=== PATIENT | female | born 1980 | race Hispanic/Latino ===

== ENCOUNTER 2017-06-23 11:06 | Day surgery (SDC) | payer OTHER ==
[2017-06-23] MEDS ORDERED: [UNRECOGNIZED DRUG - OTHER] IVPB SCH (11:30)
[2017-06-23] MEDS ORDERED: DOXORUBICIN HCL SLOW IVP SCH ×2 (11:30→11:45)
[2017-06-23] MEDS ORDERED: Fosaprepitant Dimeglumine 150 MG, Admixture Fee 1 EACH in Sodium Chloride 0.9% 250 ML 1... IVPB SCH (11:30)
[2017-06-23] MEDS ORDERED: CYCLOPHOSPHAMIDE IVPB SCH (11:30)
[2017-06-23] MEDS ORDERED: Pegfilgrastim 6 MG/0.6 ML Delivery Kit SQ SCH (11:30)
[2017-06-23] MEDS ORDERED: ADMIXTURE FEE SLOW IVP SCH (11:30)
[2017-06-23] MEDS ORDERED: Dexamethasone 10 MG in Sodium Chloride 0.9% 50 ML IVPB SCH (11:30)
[2017-06-23] MEDS ORDERED: ADMIXTURE FEE IVPB SCH (11:30)
[2017-06-23] MEDS ORDERED: Palonosetron HCl 0.25 MG, Admixture Fee 1 EACH in Sodium Chloride 0.9% 50 ML IVPB SCH (11:30)
[2017-06-23] MEDS ORDERED: SODIUM CHLORIDE 0.9% SLOW IVP SCH (11:45)
[2017-06-23 12:46] VITALS: BP 122/79; TEMP 98
== END 2017-06-23 16:06 | disposition home or self-care (01) ==
LOC: ONC/OP 11:06
PROVIDERS: ATTEND Internal Medicine Medical Oncology
DX: Z51.11 Encounter for antineoplastic chemotherapy (principal)
CPT/HCPCS: 93306; 96367; 96372; 96377; 96413; 96417; 99211; G0463; J1100; J1453; J1642; J2469; J2505; J7050; J9000; J9070

== ENCOUNTER 2017-07-07 10:29 | Day surgery (SDC) | payer OTHER ==
[2017-07-07] MEDS ORDERED: Sodium Chloride 0.9% 20 ML ONE (10:37)
[2017-07-07 10:41] VITALS: BP 126/72; TEMP 98.5
[2017-07-07] MEDS ORDERED: [UNRECOGNIZED DRUG - OTHER] IVPB SCH (10:45)
[2017-07-07] MEDS ORDERED: Palonosetron HCl 0.25 MG, Admixture Fee 1 EACH in Sodium Chloride 0.9% 50 ML IVPB SCH (10:45)
[2017-07-07] MEDS ORDERED: ADMIXTURE FEE IVPB SCH ×2 (10:45→11:00)
[2017-07-07] MEDS ORDERED: CYCLOPHOSPHAMIDE IVPB SCH (10:45)
[2017-07-07] MEDS ORDERED: Dexamethasone 10 MG, Admixture Fee 1 EACH in Sodium Chloride 0.9% 50 ML IVPB SCH (10:45)
[2017-07-07] MEDS ORDERED: SODIUM CHLORIDE IVPB SCH (11:00)
[2017-07-07] MEDS ORDERED: Pegfilgrastim 6 MG/0.6 ML Delivery Kit SQ SCH (11:00)
[2017-07-07] MEDS ORDERED: DOXORUBICIN IVPB SCH (11:00)
== END 2017-07-07 14:01 | disposition home or self-care (01) ==
LOC: ONC/OP 10:29
PROVIDERS: ATTEND Internal Medicine Medical Oncology
DX: Z51.11 Encounter for antineoplastic chemotherapy (principal); C50.411 Malignant neoplasm of upper-outer quadrant of right female breast; C77.9 Secondary and unspecified malignant neoplasm of lymph node, unspecified; E11.9 Type 2 diabetes mellitus without complications; F32.9 Major depressive disorder, single episode, unspecified; Z17.1 Estrogen receptor negative status [ER-]; Z79.84 Long term (current) use of oral hypoglycemic drugs; Z79.899 Other long term (current) drug therapy; Z98.51 Tubal ligation status; Z90.49 Acquired absence of other specified parts of digestive tract; Z98.890 Other specified postprocedural states; Z87.19 Personal history of other diseases of the digestive system
CPT/HCPCS: 36415; 80053; 82248; 83615; 84100; 84550; 96367; 96372; 96413; 96417; A4216; J1100; J1642; J2469; J7050; J9000; J9070

== ENCOUNTER 2017-08-04 09:18 | Day surgery (SDC) | payer OTHER ==
[2017-08-04] MEDS ORDERED: [UNRECOGNIZED DRUG - OTHER] IVPB SCH (09:45)
[2017-08-04] MEDS ORDERED: Pegfilgrastim 6 MG/0.6 ML Delivery Kit SQ SCH (09:45)
[2017-08-04] MEDS ORDERED: ADMIXTURE FEE IVPB SCH ×2 (09:45)
[2017-08-04] MEDS ORDERED: Dexamethasone 10 MG, Admixture Fee 1 EACH in Sodium Chloride 0.9% 50 ML IVPB SCH (09:45)
[2017-08-04] MEDS ORDERED: CYCLOPHOSPHAMIDE IVPB SCH (09:45)
[2017-08-04] MEDS ORDERED: DOXORUBICIN IVPB SCH (09:45)
[2017-08-04] MEDS ORDERED: SODIUM CHLORIDE IVPB SCH (09:45)
[2017-08-04] MEDS ORDERED: Palonosetron HCl 0.25 MG, Admixture Fee 1 EACH in Sodium Chloride 0.9% 50 ML IVPB SCH (09:45)
[2017-08-04 13:00] VITALS: BP 148/72; TEMP 98.8
== END 2017-08-04 13:50 | disposition home or self-care (01) ==
LOC: ONC/OP 09:18
PROVIDERS: ATTEND Internal Medicine Medical Oncology
DX: Z51.11 Encounter for antineoplastic chemotherapy (principal); C50.411 Malignant neoplasm of upper-outer quadrant of right female breast; E11.9 Type 2 diabetes mellitus without complications; F41.9 Anxiety disorder, unspecified; F32.9 Major depressive disorder, single episode, unspecified; Z79.84 Long term (current) use of oral hypoglycemic drugs; Z79.899 Other long term (current) drug therapy; Z98.51 Tubal ligation status; Z90.49 Acquired absence of other specified parts of digestive tract; Z98.890 Other specified postprocedural states
CPT/HCPCS: 96367; 96372; 96377; 96413; 96417; J1100; J2469; J2505; J7050; J9000; J9070

== ENCOUNTER 2017-08-18 09:36 | Day surgery (SDC) | payer OTHER ==
[2017-08-18] MEDS ORDERED: PACLitaxel 160 MG in Sodium Chloride 0.9% 250 ML 250 ML IVPB SCH (10:00)
[2017-08-18] MEDS ORDERED: Dexamethasone 10 MG in Sodium Chloride 0.9% 50 ML IVPB SCH (10:00)
[2017-08-18 10:14] VITALS: BP 117/64; TEMP 98.1
[2017-08-18] MEDS ORDERED: Sodium Chloride 0.9% 20 ML ONE (12:05)
== END 2017-08-18 12:17 | disposition home or self-care (01) ==
LOC: ONC/OP 09:36
PROVIDERS: ATTEND Internal Medicine Medical Oncology
DX: Z51.11 Encounter for antineoplastic chemotherapy (principal); C50.411 Malignant neoplasm of upper-outer quadrant of right female breast; E11.9 Type 2 diabetes mellitus without complications; F41.9 Anxiety disorder, unspecified; F32.9 Major depressive disorder, single episode, unspecified; Z79.84 Long term (current) use of oral hypoglycemic drugs; Z79.899 Other long term (current) drug therapy; Z90.49 Acquired absence of other specified parts of digestive tract; Z98.51 Tubal ligation status
CPT/HCPCS: 36415; 80053; 82248; 83615; 84100; 84550; 96367; 96413; A4216; J1100; J1642; J7050; J9267

== ENCOUNTER 2017-08-25 09:07 | Day surgery (SDC) | payer OTHER ==
[2017-08-25] MEDS ORDERED: Sodium Chloride 0.9% 20 ML ONE (09:25)
[2017-08-25] MEDS ORDERED: SODIUM CHLORIDE IVPB SCH (09:45)
[2017-08-25] MEDS ORDERED: PACLITAXEL IVPB SCH (09:45)
[2017-08-25] MEDS ORDERED: Dexamethasone 10 MG, Admixture Fee 1 EACH in Sodium Chloride 0.9% 50 ML IVPB SCH (09:45)
[2017-08-25] MEDS ORDERED: ADMIXTURE FEE IVPB SCH (09:45)
[2017-08-25 09:59] VITALS: BP 116/69; TEMP 97.5
== END 2017-08-25 16:49 | disposition home or self-care (01) ==
LOC: ONC/OP 09:07
PROVIDERS: ATTEND Internal Medicine Medical Oncology
DX: Z51.11 Encounter for antineoplastic chemotherapy (principal); C50.411 Malignant neoplasm of upper-outer quadrant of right female breast; E11.9 Type 2 diabetes mellitus without complications; F41.9 Anxiety disorder, unspecified; F32.9 Major depressive disorder, single episode, unspecified; Z79.84 Long term (current) use of oral hypoglycemic drugs; Z79.899 Other long term (current) drug therapy; Z90.49 Acquired absence of other specified parts of digestive tract; Z98.51 Tubal ligation status; Z98.890 Other specified postprocedural states
CPT/HCPCS: 96367; 96413; A4216; J1100; J1642; J7050; J9267

== ENCOUNTER 2017-09-01 09:30 | Day surgery (SDC) | payer OTHER ==
[2017-09-01] MEDS ORDERED: Sodium Chloride 0.9% 20 ML ONE ×2 (09:43→11:36)
[2017-09-01] MEDS ORDERED: SODIUM CHLORIDE IVPB SCH (10:00)
[2017-09-01] MEDS ORDERED: PACLITAXEL IVPB SCH (10:00)
[2017-09-01] MEDS ORDERED: Dexamethasone 4 mg/ml Vial SLOW IVP SCH (10:00)
[2017-09-01] MEDS ORDERED: ADMIXTURE FEE IVPB SCH (10:00)
[2017-09-01 10:41] VITALS: BP 103/73; TEMP 99.3
== END 2017-09-01 12:12 | disposition home or self-care (01) ==
LOC: ONC/OP 09:30
PROVIDERS: ATTEND Internal Medicine Medical Oncology
DX: Z51.11 Encounter for antineoplastic chemotherapy (principal); C50.411 Malignant neoplasm of upper-outer quadrant of right female breast; E11.9 Type 2 diabetes mellitus without complications; F32.9 Major depressive disorder, single episode, unspecified; F41.9 Anxiety disorder, unspecified; Z79.899 Other long term (current) drug therapy; Z90.49 Acquired absence of other specified parts of digestive tract; Z98.890 Other specified postprocedural states
CPT/HCPCS: 96375; 96413; A4216; J1100; J1642; J7050; J9267

== ENCOUNTER 2017-09-08 10:13 | Day surgery (SDC) | payer OTHER ==
[2017-09-08] MEDS ORDERED: Sodium Chloride 0.9% 20 ML ONE (10:32)
[2017-09-08] MEDS ORDERED: Dexamethasone 4 mg/ml Vial SLOW IVP SCH (11:15)
[2017-09-08] MEDS ORDERED: PACLitaxel 160 MG in Sodium Chloride 0.9% 250 ML 250 ML IVPB SCH (11:15)
[2017-09-08 13:51] VITALS: BP 123/71; TEMP 98.2
== END 2017-09-08 13:51 | disposition home or self-care (01) ==
LOC: ONC/OP 10:13
PROVIDERS: ATTEND Internal Medicine Medical Oncology
DX: Z51.11 Encounter for antineoplastic chemotherapy (principal); C50.411 Malignant neoplasm of upper-outer quadrant of right female breast; E11.9 Type 2 diabetes mellitus without complications; F32.9 Major depressive disorder, single episode, unspecified; F41.9 Anxiety disorder, unspecified; Z79.4 Long term (current) use of insulin; Z90.49 Acquired absence of other specified parts of digestive tract; Z98.51 Tubal ligation status; Z98.890 Other specified postprocedural states
CPT/HCPCS: 96375; 96413; A4216; J1100; J1642; J7050; J9267

== ENCOUNTER 2017-09-15 09:59 | Day surgery (SDC) | payer OTHER ==
[2017-09-15] MEDS ORDERED: Dexamethasone 4 mg/ml Vial SLOW IVP SCH (10:15)
[2017-09-15] MEDS ORDERED: PACLitaxel 160 MG in Sodium Chloride 0.9% 250 ML 250 ML IVPB SCH (10:15)
[2017-09-15] MEDS ORDERED: Sodium Chloride 0.9% 20 ML ONE (11:58)
== END 2017-09-15 14:30 | disposition home or self-care (01) ==
LOC: ONC/OP 09:59
PROVIDERS: ATTEND Internal Medicine Medical Oncology
DX: Z51.11 Encounter for antineoplastic chemotherapy (principal); C50.411 Malignant neoplasm of upper-outer quadrant of right female breast; E11.9 Type 2 diabetes mellitus without complications; F32.9 Major depressive disorder, single episode, unspecified; F41.9 Anxiety disorder, unspecified; Z79.84 Long term (current) use of oral hypoglycemic drugs; Z79.899 Other long term (current) drug therapy; Z90.49 Acquired absence of other specified parts of digestive tract; Z98.51 Tubal ligation status; Z98.890 Other specified postprocedural states
CPT/HCPCS: 80053; 82248; 83615; 84100; 84550; 96375; 96413; A4216; J1100; J1642; J7050; J9267

== ENCOUNTER 2017-09-22 09:40 | Day surgery (SDC) | payer OTHER ==
[2017-09-22] MEDS ORDERED: Sodium Chloride 0.9% 20 ML ONE (09:51)
[2017-09-22] MEDS ORDERED: Dexamethasone 4 MG in Sodium Chloride 0.9% 50 ML IVPB SCH (10:15)
[2017-09-22] MEDS ORDERED: PACLitaxel 160 MG in Sodium Chloride 0.9% 250 ML 250 ML IVPB SCH (10:15)
[2017-09-22 10:18] VITALS: BP 121/69; TEMP 98.4
[2017-09-22] MEDS ORDERED: Dexamethasone 4 mg/ml Vial SLOW IVP SCH (10:30)
== END 2017-09-22 11:53 | disposition home or self-care (01) ==
LOC: ONC/OP 09:40
PROVIDERS: ATTEND Internal Medicine Medical Oncology
DX: Z51.11 Encounter for antineoplastic chemotherapy (principal); C50.411 Malignant neoplasm of upper-outer quadrant of right female breast; E11.9 Type 2 diabetes mellitus without complications; F41.8 Other specified anxiety disorders; Z79.4 Long term (current) use of insulin; Z79.899 Other long term (current) drug therapy; Z98.51 Tubal ligation status; Z90.49 Acquired absence of other specified parts of digestive tract; Z98.890 Other specified postprocedural states
CPT/HCPCS: 96375; 96413; A4216; J1100; J1642; J7050; J9267

== ENCOUNTER 2017-09-29 10:04 | Day surgery (SDC) | payer OTHER ==
[2017-09-29 10:15] VITALS: BP 117/59; TEMP 98.1
[2017-09-29] MEDS ORDERED: Dexamethasone 4 MG in Sodium Chloride 0.9% 50 ML SLOW IVP SCH (10:15)
[2017-09-29] MEDS ORDERED: PACLitaxel 160 MG in Sodium Chloride 0.9% 250 ML 250 ML IVPB SCH (10:15)
[2017-09-29] MEDS ORDERED: Dexamethasone 4 mg/ml Vial SLOW IVP SCH (10:30)
[2017-09-29] MEDS ORDERED: Sodium Chloride 0.9% 20 ML ONE (10:33)
== END 2017-09-29 14:26 | disposition home or self-care (01) ==
LOC: ONC/OP 10:04
PROVIDERS: ATTEND Internal Medicine Medical Oncology
DX: Z51.11 Encounter for antineoplastic chemotherapy (principal); C50.411 Malignant neoplasm of upper-outer quadrant of right female breast; E11.9 Type 2 diabetes mellitus without complications; F41.9 Anxiety disorder, unspecified; F32.9 Major depressive disorder, single episode, unspecified; Z79.4 Long term (current) use of insulin; Z79.899 Other long term (current) drug therapy; Z98.51 Tubal ligation status; Z90.49 Acquired absence of other specified parts of digestive tract; Z98.891 History of uterine scar from previous surgery; Z98.890 Other specified postprocedural states
CPT/HCPCS: 96413; A4216; J1100; J1642; J7050; J9267

== ENCOUNTER 2017-10-06 10:06 | Day surgery (SDC) | payer OTHER ==
[2017-10-06] MEDS ORDERED: Sodium Chloride 0.9% 20 ML ONE (10:21)
[2017-10-06] MEDS ORDERED: Dexamethasone 10 MG, Admixture Fee 1 EACH in Sodium Chloride 0.9% 50 ML IVPB SCH (10:30)
[2017-10-06] MEDS ORDERED: SODIUM CHLORIDE IVPB SCH (10:30)
[2017-10-06] MEDS ORDERED: ADMIXTURE FEE IVPB SCH (10:30)
[2017-10-06] MEDS ORDERED: PACLITAXEL IVPB SCH (10:30)
[2017-10-06] MEDS ORDERED: Dexamethasone 4 mg/ml Vial SLOW IVP SCH (11:00)
[2017-10-06 11:31] VITALS: BP 130/74; TEMP 98.3
== END 2017-10-06 13:19 | disposition home or self-care (01) ==
LOC: ONC/OP 10:06
PROVIDERS: ATTEND Internal Medicine Medical Oncology
DX: Z51.11 Encounter for antineoplastic chemotherapy (principal); C50.411 Malignant neoplasm of upper-outer quadrant of right female breast; F41.9 Anxiety disorder, unspecified; F32.9 Major depressive disorder, single episode, unspecified; E11.9 Type 2 diabetes mellitus without complications; Z90.49 Acquired absence of other specified parts of digestive tract; Z98.891 History of uterine scar from previous surgery; Z98.890 Other specified postprocedural states; Z98.51 Tubal ligation status
CPT/HCPCS: 96375; 96413; A4216; J1100; J1642; J7050; J9267

== ENCOUNTER 2017-10-13 10:36 | Day surgery (SDC) | payer OTHER ==
[2017-10-13] MEDS ORDERED: Sodium Chloride 0.9% 20 ML ONE (10:45)
[2017-10-13] MEDS ORDERED: PACLITAXEL IVPB SCH (10:45)
[2017-10-13] MEDS ORDERED: SODIUM CHLORIDE IVPB SCH (10:45)
[2017-10-13] MEDS ORDERED: Dexamethasone 4 MG, Admixture Fee 1 EACH in Sodium Chloride 0.9% 50 ML IVPB SCH (10:45)
[2017-10-13] MEDS ORDERED: ADMIXTURE FEE IVPB SCH (10:45)
[2017-10-13] MEDS ORDERED: Dexamethasone 4 mg/ml Vial SLOW IVP SCH (11:00)
== END 2017-10-13 12:44 | disposition home or self-care (01) ==
LOC: ONC/OP 10:36
PROVIDERS: ATTEND Internal Medicine Medical Oncology
DX: Z51.11 Encounter for antineoplastic chemotherapy (principal); C50.411 Malignant neoplasm of upper-outer quadrant of right female breast; E11.9 Type 2 diabetes mellitus without complications; F32.9 Major depressive disorder, single episode, unspecified; F41.9 Anxiety disorder, unspecified; Z79.4 Long term (current) use of insulin; Z79.899 Other long term (current) drug therapy; Z90.49 Acquired absence of other specified parts of digestive tract; Z98.1 Arthrodesis status; Z98.891 History of uterine scar from previous surgery; Z98.890 Other specified postprocedural states
CPT/HCPCS: 36415; 80053; 82248; 83615; 84100; 84550; 96375; 96413; A4216; J1100; J1642; J7050; J9267

== ENCOUNTER 2017-10-20 09:46 | Day surgery (SDC) | payer OTHER ==
[2017-10-20] MEDS ORDERED: Dexamethasone 4 mg/ml Vial SLOW IVP SCH (10:00)
[2017-10-20] MEDS ORDERED: PACLitaxel 160 MG in Sodium Chloride 0.9% 250 ML 250 ML IVPB SCH (10:00)
[2017-10-20 10:10] VITALS: BP 116/68; TEMP 97.7
[2017-10-20] MEDS ORDERED: Sodium Chloride 0.9% 30 ML ONE (10:26)
== END 2017-10-20 16:45 | disposition home or self-care (01) ==
LOC: ONC/OP 09:46
PROVIDERS: ATTEND Internal Medicine Medical Oncology
DX: Z51.11 Encounter for antineoplastic chemotherapy (principal); C50.411 Malignant neoplasm of upper-outer quadrant of right female breast; E11.9 Type 2 diabetes mellitus without complications; F41.9 Anxiety disorder, unspecified; F32.9 Major depressive disorder, single episode, unspecified; Z79.4 Long term (current) use of insulin; Z90.49 Acquired absence of other specified parts of digestive tract; Z98.890 Other specified postprocedural states
CPT/HCPCS: 96375; 96413; A4216; J1100; J1642; J7050; J9267

== ENCOUNTER 2017-10-21 15:23 | Emergency (ER) | payer OTHER ==
[2017-10-21 16:52] LABS: #Eosinphils 0.1 thou/uL (0.0-0.7); #Lymphocytes 1.6 thou/uL (1.20-3.40); #Monocytes 0.2 thou/uL (0.11-0.59); #Neutrophils 1.8 thou/uL (1.40-6.50); %Basophils 1.3 % (0.0-1.0); %Eosinophils 1.6 % (0.0-10.0); %Lymphocytes 43.2 % (21.0-51.0); %Monocytes 4.5 % (0.0-10.0); %Neutrophils 49.3 % (42.0-75.0); Hemoglobin 13.3 g/dL (12.0-16.0); Mean Corpuscular HGB CONC 36.1 g/dL (32.0-36.0); Mean Corpuscular Hemoglobin 33.2 pg (27.0-31.0); Mean Platelet Volume 7.7 fL (7.4-10.4); Platelet Count 313 thou/uL (130-400); RBC Distribution Width 14.3 % (11.5-14.5); Red Blood Cell (RBC) Count 4.01 mill/uL (4.20-5.40); White Blood Cell (WBC) Count 3.6 thou/uL (4.8-10.8)
[2017-10-21 17:07] LABS: Base Excess-Venous -0.9 mmol/L (-30.0-30.0); Bicarbonate (HCO3v) 24.2 mmol/L (1.0-85.0); CO2 Tension (PvCO2) 40.8 mmHg (41.0-51.0); Calcium, Ionized 1.19 mmol/L (1.12-1.32); Hemoglobin - Calc 13.6 g/dL (12.0-18.0); O2 Tension (PvO2) 45.8 mmHg (35.0-45.0); Potassium 3.8 mmol/L (3.4-4.7); T. Carbon Dioxide 25.4 mmol/L (1.0-85.0); pH (Venous) 7.381 (7.35-7.45); vO2 Saturation-calc 80.7 % (0.0-100.0)
[2017-10-21 17:17] LABS: ALT (SGPT) 20 U/L (8-55); AST (SGOT) 17 U/L (5-34); Albumin 4.1 g/dL (3.5-5.0); Alkaline Phosphatase 130 U/L (40-150); Anion Gap 14 mmol/L (10-20); BUN (Urea Nitrogen) 11 mg/dL (7.0-18.7); Bilirubin, Total 0.6 mg/dL (0.2-1.2); Calc. Creatinine Clearance 0 mL/min (70-130); Calcium 9.7 mg/dL (7.8-10.44); Carbon Dioxide 23 mmol/L (22-29); Chloride 100 mmol/L (98-107); Estimated GFR-MDRD 89; Globulin 3.3 g/dL (2.4-3.5); Glucose 419 mg/dL (70-105); Magnesium 2.2 mg/dL (1.6-2.6); Phosphorus 3.7 mg/dL (2.3-4.7); Potassium 3.9 mmol/L (3.5-5.1); Protein, Total 7.4 g/dL (6.0-8.3); Sodium 133 mmol/L (136-145)
[2017-10-21 17:37] LABS: Bilirubin Negative (Negative); Blood, Urine Negative (Negative); Clarity CLEAR (Clear); Glucose, Urine (Dipstick) >=1000 mg/dL (Negative); Leukocyte Negative (Negative); Nitrite Negative (Negative); Protein, Urine (Dipstick) Negative (Neg-Trace); Specific Gravity, Urine 1.039 (1.002-1.036); Urobilinogen 0.2 mg/dL (0.2-1.0)
[2017-10-21 17:39] LABS: Pregnancy Test - Urine (BHCG) Negative (Negative); Pregu Control Background? CLEAR/WHITE (CLR/WHITE); Pregu Control Bar Appear? YES (CONTROL BAR); Specific Gravity 1.039 (1.002-1.036)
[2017-10-21] MEDS ORDERED: Insulin Regular 300 UNITS/3 ML VIAL ONE (18:39)
== END 2017-10-21 19:05 | disposition home or self-care (01) ==
LOC: ERS 15:23
DX: E11.65 Type 2 diabetes mellitus with hyperglycemia (principal); F31.9 Bipolar disorder, unspecified; Z79.899 Other long term (current) drug therapy
CPT/HCPCS: 36415; 36416; 80053; 81003; 81025; 82010; 82330; 82803; 83735; 84100; 85025; 96360; 96361; 96372; J1815

== ENCOUNTER 2017-10-27 10:02 | Day surgery (SDC) | payer OTHER ==
[2017-10-27] MEDS ORDERED: Sodium Chloride 0.9% 40 ML ONE (10:12)
[2017-10-27] MEDS ORDERED: SODIUM CHLORIDE IVPB SCH (10:15)
[2017-10-27] MEDS ORDERED: PACLITAXEL IVPB SCH (10:15)
[2017-10-27] MEDS ORDERED: Dexamethasone 4 mg/ml Vial SLOW IVP SCH (10:15)
[2017-10-27] MEDS ORDERED: ADMIXTURE FEE IVPB SCH (10:15)
[2017-10-27 10:17] VITALS: BP 125/71; TEMP 98.2
== END 2017-10-27 13:12 | disposition home or self-care (01) ==
LOC: ONC/OP 10:02
PROVIDERS: ATTEND Internal Medicine Medical Oncology
DX: Z51.11 Encounter for antineoplastic chemotherapy (principal); C50.411 Malignant neoplasm of upper-outer quadrant of right female breast; E11.9 Type 2 diabetes mellitus without complications; F41.8 Other specified anxiety disorders; Z79.4 Long term (current) use of insulin; Z79.899 Other long term (current) drug therapy; Z90.11 Acquired absence of right breast and nipple; Z90.49 Acquired absence of other specified parts of digestive tract; Z98.890 Other specified postprocedural states
CPT/HCPCS: 96375; 96413; A4216; J1100; J1642; J7050; J9267

== ENCOUNTER 2017-11-03 09:46 | Day surgery (SDC) | payer OTHER ==
[2017-11-03] MEDS ORDERED: Sodium Chloride 0.9% 50 ML ONE (09:50)
[2017-11-03] MEDS ORDERED: SODIUM CHLORIDE IVPB SCH (10:00)
[2017-11-03] MEDS ORDERED: PACLITAXEL IVPB SCH (10:00)
[2017-11-03] MEDS ORDERED: Dexamethasone 4 mg/ml Vial SLOW IVP SCH (10:00)
[2017-11-03] MEDS ORDERED: ADMIXTURE FEE IVPB SCH (10:00)
[2017-11-03 10:11] VITALS: BP 113/68; TEMP 98
== END 2017-11-03 12:21 | disposition home or self-care (01) ==
LOC: ONC/OP 09:46
PROVIDERS: ATTEND Internal Medicine Medical Oncology
DX: Z51.11 Encounter for antineoplastic chemotherapy (principal); C50.411 Malignant neoplasm of upper-outer quadrant of right female breast; E11.9 Type 2 diabetes mellitus without complications; F41.9 Anxiety disorder, unspecified; F32.9 Major depressive disorder, single episode, unspecified; Z79.84 Long term (current) use of oral hypoglycemic drugs; Z79.899 Other long term (current) drug therapy; Z98.51 Tubal ligation status; Z90.49 Acquired absence of other specified parts of digestive tract; Z98.891 History of uterine scar from previous surgery; Z98.890 Other specified postprocedural states
CPT/HCPCS: 96375; 96413; A4216; J1100; J1642; J7050; J9267

== ENCOUNTER 2018-03-02 12:58 | Outpatient (CLI) | payer OTHER | END 2018-03-02 12:59 | disposition home or self-care (01) | LOC: BICMAMMO 12:58 | PROVIDERS: ATTEND Internal Medicine Medical Oncology | DX: N64.4 Mastodynia (principal); N63.10 Unspecified lump in the right breast, unspecified quadrant; N64.89 Other specified disorders of breast; Z90.11 Acquired absence of right breast and nipple; Z85.3 Personal history of malignant neoplasm of breast | CPT/HCPCS: 77066; G0279 ==

== ENCOUNTER 2018-07-14 10:04 | Outpatient (CLI) | payer OTHER ==
--- NOTE | 2018-07-14 12:05 | RAD ---
2 VIEWS CHEST: Date: 07/14/18 HISTORY: History of breast cancer. FINDINGS: Comparison made to previous exam from 04/27/17. PA and lateral views of the chest are obtained and demonstrate extensive right axillary surgical clip s. A left subclavian MediPort type catheter is in place. The lungs are well aerated. No evidence of acute intrathoracic abnormality seen. No evidence of effus ions, pneumonia, or pneumothorax seen. IMPRESSION: Unremarkable 2 views chest. POS: [facility]
== END 2018-07-14 10:05 | disposition home or self-care (01) ==
LOC: BICRAD 10:04
PROVIDERS: ATTEND Specialist
DX: Z08 Encounter for follow-up examination after completed treatment for malignant neoplasm (principal); Z85.3 Personal history of malignant neoplasm of breast
CPT/HCPCS: 71046

== ENCOUNTER 2018-07-28 09:19 | Emergency (ER) | payer OTHER ==
[2018-07-28] MEDS ORDERED: Acetaminophen 325 MG TAB ONE (10:57)
--- NOTE | 2018-07-28 11:09 | ULT ---
VENOUS DOPPLER ULTRASOUND OF THE LEFT UPPER EXTREMITY: Date: 07/28/18 HISTORY: Swelling and pain in the left upper extremity. FINDINGS: There is intraluminal thrombus with severely decreased flow in the left subclavian vein. The remainde r of the deep venous system of the left upper extremity is otherwise patent. There is slow flow, but good compression in the left axillary vein without evidence of thrombosis. There is a catheter in the left subclavian vein. IMPRESSION: Deep venous thrombosis in the left upper extremity involving the subclavian vein. Discussed over the telephone with ER physician, Dr. Phoenix Man, at 1041 hours. CODE CR. POS: [facility]
--- NOTE | 2018-07-28 11:27 | PDOC.FPRHP ---
- History of Present Illness Chief Complaint: L arm swelling History of Present Illness: Ms. Luna presents to the ED today after noticing her left arm swelling since yesterday. she reports pain in her upper chest, neck, L arm that she describes as burning/ pressure since having her mediport removed on 07/12 after completing chemotherapy for R breast cancer. She noticed a rash and swelling appear on her L arm yesterday, she denies an SOB, focal weakness, syncope, palpitations, or vision changes recently. It was reported that during her mediport removal part of the length of catheter was left behind in her venous system because it was assumed to be adhered to the wall. Her surgeon was contacted from the the ED. ED Course: US LE venous system - Allergies/Adverse Reactions Allergies Allergy/AdvReac Type Severity Reaction Status Date / Time No Known Allergies Allergy Verified 04/19/17 13:36 - Home Medications Medication Instructions Recorded Confirmed Type Sertraline HCl 100 mg PO QPM 08/02/15 05/05/17 History metFORMIN [Glucophage] 500 mg PO BID-WM 04/19/17 05/05/17 History Hydroco/Apap 1 tab PO ASDIR PRN 05/05/17 History - History PMHx: R breast cancer (in remission), DMII, Depression PSHx: Appy, mediport placement/removal, lumpectomy w/ lymph node dissection, ovary removal 10/15 ectopic FHx: NC Social: no TAD - Review of Systems Eyes: denies: vision changes ENT: denies: nasal congestion Respiratory: denies: congestion, shortness of breath Cardiovascular: reports: chest pain, edema. denies: palpitation, orthopnea Gastrointestinal: denies: nausea, vomiting, diarrhea, constipation, abdominal pain Genitourinary: denies: incontinence, dysuria Skin: reports: rashes. denies: lesions, jaundice, itching Musculoskeletal: denies: pain, tenderness, stiffness Neurological: reports: numbness. denies: syncope Psychological: reports: depression - Vital signs BP: 144/92 HR: 90 RR: 18 Tmax: 98.9 Pox: 99% on RA Wt: 93kg - Physical Exam Constitutional: NAD HEENT: normocephalic and atraumatic, grossly normal vision, grossly normal hearing Neck: supple, trachea midline Chest: no-tender to palpation Heart: RRR, normal S1/S2, no murmurs/rubs/gallops Lungs: CTAB, no respiratory distress, good air movement Abdomen: soft, non-tender Musculoskeletal: normal structure, normal tone Neurological: no focal deficit, CN II-XII intact Skin: no rash/lesions Heme/Lymphatic: no unusual bruising or bleeding, no purpura -Heme/Lymphatic: L arm petechiae Psychiatric: normal mood and affect FMR H&P: A/P - Problem List (1) Subclavian vein thrombosis Current Visit: Yes Status: Acute Code(s): I82.B19 - ACUTE EMBOLISM AND THROMBOSIS OF UNSPECIFIED SUBCLAVIAN VEIN (2) Diabetes mellitus type 2 in nonobese Current Visit: Yes Status: Acute Code(s): E11.9 - TYPE 2 DIABETES MELLITUS WITHOUT COMPLICATIONS (3) History of breast cancer Current Visit: Yes Status: Acute Code(s): Z85.3 - PERSONAL HISTORY OF MALIGNANT NEOPLASM OF BREAST (4) Depression Current Visit: Yes Status: Acute Code(s): F32.9 - MAJOR DEPRESSIVE DISORDER , SINGLE EPISODE, UNSPECIFIED - Plan Subclavian venous thrombus - appearing on US, does not extend into bifurcation with juglar or vena cava - Dr. Camacho contacted from ED, no recommended surgical intervention - will contact IR for anticoagulation drip consult - if not possible, consider elliquis for anti-coagulation for 6 months - CBC, CMP, coag studies. continue to evaluate for other possible causes - admit to surgical, monitor respiratory status H/o breast cancer - reported in remission, completed chemotherapy and radiation - possibly at increased risk for coagulation Diabetes mellitus - well controlled, continue home medication Depression - continue home medication Code: full ppx: anticoagulate Disposition/LOS: admit to surgical, anti-coagulate FMR H&P: Upper Level - Plan Date/Time: 07/28/18 1124 I, [], have evaluated this patient and agree with findings/plan as outlined by seo intern resident. Pertinent changes/additions are listed here.
[2018-07-28 11:35] LABS: #Basophils 0.1 thou/uL (0.0-0.2); #Eosinphils 0.1 thou/uL (0.0-0.7); #Lymphocytes 2.2 thou/uL (1.20-3.40); #Monocytes 0.4 thou/uL (0.11-0.59); #Neutrophils 3.5 thou/uL (1.40-6.50); %Basophils 1.2 % (0.0-1.0); %Eosinophils 2.3 % (0.0-10.0); %Lymphocytes 34.3 % (21.0-51.0); %Monocytes 5.7 % (0.0-10.0); %Neutrophils 56.5 % (42.0-75.0); Hemoglobin 15.2 g/dL (12.0-16.0); Mean Corpuscular HGB CONC 33.6 g/dL (32.0-36.0); Mean Corpuscular Volume 83.2 fL (78.0-98.0); Mean Platelet Volume 6.7 fL (7.4-10.4); Platelet Count 333 thou/uL (130-400); Red Blood Cell (RBC) Count 5.43 mill/uL (4.20-5.40); White Blood Cell (WBC) Count 6.3 thou/uL (4.8-10.8)
[2018-07-28 11:41] LABS: PTT 27.4 SEC (22.9-36.1)
[2018-07-28 12:02] LABS: ALT (SGPT) 17 U/L (8-55); AST (SGOT) 15 U/L (5-34); Albumin 4.1 g/dL (3.5-5.0); Alkaline Phosphatase 152 U/L (40-150); Anion Gap 14 mmol/L (10-20); BUN (Urea Nitrogen) 13 mg/dL (7.0-18.7); Bilirubin, Total 0.5 mg/dL (0.2-1.2); Calc. Creatinine Clearance 0 mL/min (70-130); Calcium 10.2 mg/dL (7.8-10.44); Carbon Dioxide 21 mmol/L (22-29); Chloride 101 mmol/L (98-107); Estimated GFR-MDRD Greater than 90; Glucose 232 mg/dL (70-105); Potassium 4.2 mmol/L (3.5-5.1); Protein, Total 8.1 g/dL (6.0-8.3); Sodium 132 mmol/L (136-145)
[2018-07-28] MEDS ORDERED: Enoxaparin Sodium 100 MG/ML SYRINGE ONE (14:40)
== END 2018-07-28 15:49 | disposition short-term general hospital (02) ==
LOC: ERS 09:19
DX: I82.A12 Acute embolism and thrombosis of left axillary vein (principal); C50.919 Malignant neoplasm of unspecified site of unspecified female breast; E11.9 Type 2 diabetes mellitus without complications; F41.9 Anxiety disorder, unspecified; F32.9 Major depressive disorder, single episode, unspecified; Z79.84 Long term (current) use of oral hypoglycemic drugs
CPT/HCPCS: 80053; 85025; 85610; 85730; 96372; J1650

== ENCOUNTER 2018-08-14 11:50 | Emergency (ER) | payer OTHER ==
[2018-08-14 12:41] LABS: #Eosinphils 0.1 thou/uL (0.0-0.7); #Monocytes 0.4 thou/uL (0.11-0.59); #Neutrophils 3.1 thou/uL (1.40-6.50); %Basophils 0.3 % (0.0-1.0); %Eosinophils 2.2 % (0.0-10.0); %Lymphocytes 35.6 % (21.0-51.0); %Monocytes 6.2 % (0.0-10.0); %Neutrophils 55.7 % (42.0-75.0); Hemoglobin 14.6 g/dL (12.0-16.0); Mean Corpuscular HGB CONC 35.1 g/dL (32.0-36.0); Mean Corpuscular Hemoglobin 29.3 pg (27.0-31.0); Mean Corpuscular Volume 83.3 fL (78.0-98.0); Mean Platelet Volume 6.7 fL (7.4-10.4); Platelet Count 347 thou/uL (130-400); White Blood Cell (WBC) Count 5.6 thou/uL (4.8-10.8)
[2018-08-14 13:03] LABS: ALT (SGPT) 16 U/L (8-55); AST (SGOT) 12 U/L (5-34); Albumin 3.7 g/dL (3.5-5.0); Alkaline Phosphatase 164 U/L (40-150); Anion Gap 17 mmol/L (10-20); BUN (Urea Nitrogen) 8 mg/dL (7.0-18.7); Bilirubin, Total 0.5 mg/dL (0.2-1.2); Calc. Creatinine Clearance 0 mL/min (70-130); Calcium 9.7 mg/dL (7.8-10.44); Carbon Dioxide 22 mmol/L (22-29); Chloride 99 mmol/L (98-107); Estimated GFR-MDRD 77; Globulin 3.7 g/dL (2.4-3.5); Glucose 409 mg/dL (70-105); Potassium 3.7 mmol/L (3.5-5.1); Protein, Total 7.4 g/dL (6.0-8.3); Sodium 134 mmol/L (136-145)
[2018-08-14] MEDS ORDERED: Ondansetron PF 4 MG/2 ML Vial ONE (13:03)
[2018-08-14] MEDS ORDERED: Morphine 4 MG/ML VIAL ONE (13:03)
[2018-08-14 13:08] LABS: PTT 29.6 SEC (22.9-36.1); Prothrombin Time 13.4 SEC (12.0-14.7)
[2018-08-14 13:13] LABS: CKMB 0.5 ng/mL (0-6.6); Troponin I Less than 0.010 ng/mL (< 0.028)
--- NOTE | 2018-08-14 14:03 | CT ---
CTA THORAX UTILIZING IV CONTRAST WITH PE PROTOCOL AND 3D REFORMATTED IMAGING: INDICATIONS: History of chest pain and left upper extremity swelling. History of breast cancer with Mediport plac ement no 07/13/2018. FINDINGS: There is a left chest wall Mediport in place. No central or segmental pulmonary embolus is evident. There is some reticulation involving the peripheral aspect of the right upper lobe, likely related t o radiation induced fibrosis. There is some periseptal emphysema involving both lower lobes. No ple ural effusion or pneumothorax is evident. No enlarged lymph nodes are noted. Skin thickening involv ing the right breast, consistent with prior radiation therapy. The gallbladder is surgically absent. There is a diffuse fatty liver. The adrenal glands are normal appearing. No acute osseous abnorma lity is noted. IMPRESSION: 1. No central or segmental pulmonary embolus. 2. Radiation therapy changes involving the right breast and right upper lobe. 3. Mild periseptal emphysema. 4. Left chest wall port. POS: [facility]
[2018-08-14] MEDS ORDERED: Iopamidol 370 76% 100 ML VIAL ONE (16:38)
== END 2018-08-14 15:51 | disposition home or self-care (01) ==
LOC: ERS 11:50
DX: T82.598A Other mechanical complication of other cardiac and vascular devices and implants, initial encounter (principal); M79.89 Other specified soft tissue disorders; F41.9 Anxiety disorder, unspecified; F31.9 Bipolar disorder, unspecified; Z79.84 Long term (current) use of oral hypoglycemic drugs; Z79.899 Other long term (current) drug therapy
CPT/HCPCS: 36415; 71275; 80053; 82553; 83880; 84484; 85025; 85610; 85730; 93005; 94760; 96361; 96374; 96375; J2270; J2405

== ENCOUNTER 2018-12-23 13:15 | Observation (INO) | payer OTHER ==
--- NOTE | 2018-12-23 14:23 | CT ---
EXAM: Brain CT scan Without contrast: HISTORY: Stroke alert, slurred speech and aphasia COMPARISON: None FINDINGS: Atrophy and chronic white matter ischemic change. No focal mass or midline shift. No intra or extra-axial hemorrhage. IMPRESSION: No mass or bleed or other significant acute process. Report is called to Dr. Cole in the emergency room at 2:19 PM CODE CR 1
[2018-12-23 14:33] LABS: #Basophils 0.1 thou/uL (0.0-0.2); #Eosinphils 0.1 thou/uL (0.0-0.7); #Lymphocytes 2.6 thou/uL (1.20-3.40); #Monocytes 0.4 thou/uL (0.11-0.59); #Neutrophils 3.4 thou/uL (1.40-6.50); %Basophils 1.2 % (0.0-1.0); %Eosinophils 1.6 % (0.0-10.0); %Lymphocytes 39.2 % (21.0-51.0); %Monocytes 6.5 % (0.0-10.0); %Neutrophils 51.4 % (42.0-75.0); Hemoglobin 14.9 g/dL (12.0-16.0); Mean Corpuscular HGB CONC 33.9 g/dL (32.0-36.0); Mean Corpuscular Hemoglobin 28.6 pg (27.0-31.0); Mean Corpuscular Volume 84.2 fL (78.0-98.0); Mean Platelet Volume 6.9 fL (7.4-10.4); Platelet Count 280 thou/uL (130-400); RBC Distribution Width 13.5 % (11.5-14.5); Red Blood Cell (RBC) Count 5.23 mill/uL (4.20-5.40); White Blood Cell (WBC) Count 6.5 thou/uL (4.8-10.8)
[2018-12-23 14:43] LABS: ALT (SGPT) 16 U/L (8-55); AST (SGOT) 12 U/L (5-34); Albumin 4.1 g/dL (3.5-5.0); Alkaline Phosphatase 168 U/L (40-150); Anion Gap 15 mmol/L (10-20); BUN (Urea Nitrogen) 11 mg/dL (7.0-18.7); Bilirubin, Total 0.3 mg/dL (0.2-1.2); Calc. Creatinine Clearance 0 mL/min (70-130); Calcium 10.1 mg/dL (7.8-10.44); Carbon Dioxide 23 mmol/L (22-29); Chloride 100 mmol/L (98-107); Estimated GFR-MDRD 76; Globulin 3.7 g/dL (2.4-3.5); Glucose 411 mg/dL (70-105); Protein, Total 7.8 g/dL (6.0-8.3); Sodium 134 mmol/L (136-145)
[2018-12-23 14:51] LABS: INR-International Normal Ratio 0.9; PTT 27.6 SEC (22.9-36.1); Prothrombin Time 12.6 SEC (12.0-14.7)
[2018-12-23] MEDS ORDERED: Aspirin Chewable 81 MG TAB ONE (15:07)
[2018-12-23] MEDS ORDERED: ISOVUE-370 76%-LOCM 1 ML ONE (15:08)
--- NOTE | 2018-12-23 15:20 | CT ---
CT ANGIOGRAM OF HEAD CT ANGIOGRAM OF NECK: Date: 12/23/18 HISTORY: Slurred speech. Aphasia. COMPARISON: None. TECHNIQUE: CT angiogram of the head and neck are performed in the axial plane. Three-dimensional reformatted maximus ges are submitted for interpretation. FINDINGS: POSTCONTRAST HEAD CT: Cortical mccarty-white matter differentiation is preserved. No evidence of hydrocephalus. Calvarium is intact. Adequate aeration of the sinuses and mastoid air cells. Minimal mucus retention cyst in the left maxillary sinus. Both ocular lenses are appropriately located. Both globes are intac t. Retrobulbar fat is preserved. Symmetric attenuation of the optic nerves and ocular rectus muscles. Aerodigestive tract is patent. No mucosal abnormality. Nonspecific mild fullness of the left and righ t palatine tonsils. Symmetric attenuation of the carotid and submandibular glands. Unremarkable thyroid gland. Symmetric attenuation of the sternocleidomastoid muscles. No evidence of lymphadenopathy by size criteria. Cervical spine vertebral body height is maintained. There is no fracture. Central spinal canal and ne ural foramina are patent. Evaluation is limited by technique. Upper mediastinum is unremarkable. There is a ground-glass opacity in the left upper lobe measuring [address] ANGIOGRAM NECK: Aortic arch has appropriate enhancement and luminal diameter. Right carotid: Innominate artery origin has appropriate enhancement and luminal diameter. Common [place] tid artery, carotid bifurcation, and internal carotid arteries have appropriate enhancement and lumin al diameter. Left carotid: Left carotid artery origin has appropriate enhancement and luminal diameter. The left common carotid, carotid bifurcation, and the internal carotid artery have appropriate enhancement and luminal diameter. Both visualized subclavian arteries are patent. Bilateral cervical vertebral arteries are also patent throughout their course in the neck. CT ANGIOGRAM HEAD: There is symmetric enhancement and luminal diameter of the distal cervical and intracranial internal carotid arteries. Anterior circulation: There is symmetric enhancement and luminal diameter of the A1 and M1 segments. Proximal A2 segments and MCA branches have symmetric enhancement and luminal diameter. Posterior circulation: Both intracranial vertebral arteries have appropriate enhancement and luminal diameter. Limited evaluation of the right PICA artery origin. Left PICA artery appears to be unremar kable. Both vertebral arteries supply a normal appearing basilar artery. Left and right P1 segments h ave symmetric enhancement and luminal diameter. Note: Though the entire [place] patent, the overall caliber of the vessels at the level of the [place] is somewhat small. This may be a congenital variant. IMPRESSION: 1. No evidence of stenosis in the cervical carotid arteries based upon NASCET criteria. 2. Patent [place]. However, the vessels within the [place] are diffusely diminutiv e, which may represent a congenital variant. Correlate clinically. MRI may be beneficial for further evaluation. Results of study discussed with Dr. Cole on 12/23/18 at 1433 hours. CODE CR. POS: OFF
--- NOTE | 2018-12-23 15:59 | PDOC.FPRHP ---
- History of Present Illness Chief Complaint: slurred speech, weakness History of Present Illness: This is a 38 yo F with a CC of slurred speech and weakness since 1200. She has a PMH of DM and hx of breast cancer s/p radiation and chemo in 11/2017. The patient states that she was at work when she began having a headache around 1200, she subsequently developed difficulty with her speech. She states that she feels as if she is thinking quicker than her words are getting out. She states she also has left upper chest/arm pain that has been there for about a year - she has a medi-port in place there and is scheduled to get it out next . The patient denies chest pain, palpitations, NVD, vision changes, dysuria, numbness. She endorses weakness in extremities, but denies difficulty walking. She denies difficulty swallowing. She denies fever/chills. 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 - Allergies/Adverse Reactions Allergies Allergy/AdvReac Type Severity Reaction Status Date / Time No Known Allergies Allergy Verified 12/23/18 19:21 - Home Medications Medication Instructions Recorded Confirmed Type Sertraline HCl 50 mg PO TID 08/02/15 12/23/18 History metFORMIN [Glucophage] 1,000 mg PO BID-WM 04/19/17 12/23/18 History Apixaban [Eliquis] 5 mg PO BID 12/23/18 12/23/18 History Atorvastatin Calcium [Lipitor] 20 mg PO HS #30 tab 12/24/18 Rx Insulin Glargine,Hum.Rec.Anlog 5 unit SC DAILY #3 pen 12/24/18 Rx [Lantus Solostar] - History PMHx: DM, hx of breast cancer diagnosed in 2017 s/p chemo/radiation PSHx: medi-port placement, hernia repair, tubal , cholecystectomy, c- section x 3, lumpectomy FHx: Mother: DM, Grandfathers - cancer (unknown) Social: denies alcohol, tobacco, or drug use - Review of Systems General: denies: fever/chills, weight/appetite/sleep changes, fatigue Eyes: denies: vision changes ENT: denies: nasal congestion, rhinorrhea Respiratory: denies: cough, congestion, shortness of breath, exercise intolerance Cardiovascular: denies: chest pain, palpitation, edema Gastrointestinal: denies: nausea, vomiting, diarrhea, constipation - Vital signs BP: [] HR: [] RR: [] Tmax: [] Pox: []% on [] Wt: [] FMR H&P: Results - Labs Result Diagrams: 12/24/18 03:11 12/24/18 03:11 Lab results: WBC 6.5 thou/uL (4.8-10.8) 12/23/18 14:20 Hgb 14.9 g/dL (12.0-16.0) 12/23/18 14:20 Hct 44.0 % (36.0-47.0) 12/23/18 14:20 MCV 84.2 fL (78.0-98.0) 12/23/18 14:20 Plt Count 280 thou/uL (130-400) 12/23/18 14:20 Neutrophils % 51.4 % (42.0-75.0) 12/23/18 14:20 Sodium 134 mmol/L (136-145) L 12/23/18 14:20 Potassium 4.0 mmol/L (3.5-5.1) 12/23/18 14:20 Chloride 100 mmol/L (98-107) 12/23/18 14:20 Carbon Dioxide 23 mmol/L (22-29) 12/23/18 14:20 BUN 11 mg/dL (7.0-18.7) 12/23/18 14:20 Creatinine 0.85 mg/dL (0.6-1.1) 12/23/18 14:20 Glucose 411 mg/dL (70-105) H 12/23/18 14:20 Calcium 10.1 mg/dL (7.8-10.44) 12/23/18 14:20 Total Bilirubin 0.3 mg/dL (0.2-1.2) 12/23/18 14:20 AST 12 U/L (5-34) 12/23/18 14:20 ALT 16 U/L (8-55) 12/23/18 14:20 Alkaline Phosphatase 168 U/L (40-150) H 12/23/18 14:20 Serum Total Protein 7.8 g/dL (6.0-8.3) 12/23/18 14:20 Albumin 4.1 g/dL (3.5-5.0) 12/23/18 14:20 FMR H&P: A/P - Problem List (1) Depression Current Visit: No Status: Acute Code(s): F32.9 - MAJOR DEPRESSIVE DISORDER, SINGLE EPISODE, UNSPECIFIED (2) Diabetes mellitus type 2 in nonobese Current Visit: No Status: Acute Code(s): E11.9 - TYPE 2 DIABETES MELLITUS WITHOUT COMPLICATIONS (3) History of breast cancer Current Visit: No Status: Acute Code(s): Z85.3 - PERSONAL HISTORY OF MALIGNANT NEOPLASM OF BREAST (4) TIA (transient ischemic attack) Current Visit: Yes Status: Acute Code(s): G45.9 - TRANSIENT CEREBRAL ISCHEMIC ATTACK, UNSPECIFIED (5) CVA (cerebral vascular accident) Current Visit: Yes Status: Acute Code(s): I63.9 - CEREBRAL INFARCTION, UNSPECIFIED - Plan TIA vs CVA Patient presenting w/ aphasia and headache since noon 12/23. Patient not candidate for TPA due to being on eliquis. PMH of breast cancer. CT brain neg. CTA: congenital small vasculature. - Echo pending - A1C, FLP, ESR/CRP pending - PT/OT and speech consulted - Monitor VS DMII - aware, on metformin, will continue Depression - aware, restart home med Hx of breast cancer - last chemo/radiation Oct-November 2017 Code: FULL VTE ppx: eliquis Diet: CC Case discussed with Dr. Vaca FMR H&P: Upper Level - Pertinent history 38 yo female presenting for neuro deficits. Pt was at work today when she suddenly began to have a CALIX. Assoc left cheek pain. Soon after she began having speaking, slurring her words. She wanted to lay down and rest, but nurse at work told her to go to ER. Difficulty with word search. Assoc left sided weakness. Denies SOB, N/V. - Pertinent findings 106/78 HR: 88 RR: 21 SO2: 100% on RA GEN: NAD CARD: RRR PULM: CTAB NEURO: slurred speech, weakness of left upper and lower extremities CTA head/neck: no evidence of stenosis in the cervical carotid arteries; patent [place] of [place] but vessels within the [place] of mg are diffusely diminutive, which may represent a congenital variant EKG: NSR - Plan Date/Time: 12/23/18 [id number] I, Sky Beckford DO, have evaluated this patient and agree with findings/plan as outlined by international affairs vice president resident. Pertinent changes/additions are listed here. #focal deficits concerning for TIA vs CVA -CT [place] of [place] Angio might be contributing to this new finding -MRI, ECHO TSH, FLP, HA1c -Pt received ASA in ER -admit to stroke, neuro checks #hx of breast cancer #DMII Addendum - Attending - Attending Attestation Date/Time: 12/23/182114 I personally evaluated the patient and discussed the management with Dr. Dailey/ Analy I agree with the History, Examination, Assessment and Plan documented above with any addition or exceptions noted below. 38 yo female with PMHX breast CA s/p lumpectomy chemo and XRT. Patient with acute onset aphasia and left sided hemiparesis UE >LE (weakness) today at work brought in by daughter to ER. Patient on eliquis and not TPA candidate CT with questionable congenital small vessels no ICH. Admit proceed with MRI, echocardiogram ASA given in ER and admit further evaluation r/o CVA verse stroke mimic vasculitis,TIA, metastatic disease,MS, complex migrane, electrolyte imbalance.will need swallow study OT/PT/speech pending progress.
[2018-12-23] MEDS ORDERED: Acetaminophen 650 MG Suppository PR PRN (16:01)
[2018-12-23] MEDS ORDERED: Acetaminophen 325 MG TAB PO PRN (16:01)
[2018-12-23] MEDS ORDERED: Ondansetron PF 4 MG/2 ML Vial IVP PRN (16:01)
[2018-12-23] MEDS ORDERED: Dextrose 5% in Water 1,000 ML IV PRN (16:01)
[2018-12-23] MEDS ORDERED: Ondansetron ODT 4 MG TAB PO PRN (16:01)
[2018-12-23] MEDS ORDERED: Dextrose 50% Abboject 50 ML SYRINGE SLOW IVP PRN (16:01)
[2018-12-23 16:43] LABS: Hemoglobin A1c 10.4 % (4.0-6.0)
--- NOTE | 2018-12-23 17:08 | MRI ---
MRI brain noncontrast HISTORY: Aphasia.. Altered mental status. FINDINGS: There is no evidence of acute intracranial hemorrhage or infarct. The ventricles appear nor mal in size, shape and position. There is no mass effect or shift of midline structures. Visualized paranasal sinuses remain well aerated. IMPRESSION: No acute intracranial abnormalities are demonstrated.
[2018-12-23 18:03] LABS: Troponin I Less than 0.010 ng/mL (< 0.028)
[2018-12-23 18:06] VITALS: BMI 38.0
[2018-12-23] MEDS: HumaLOG 300 UNITS/3 ML VIAL SC PRN (20:47)
[2018-12-23 21:02] LABS: Troponin I 0.013 ng/mL (< 0.028)
[2018-12-24 04:03] LABS: #Basophils 0.1 thou/uL (0.0-0.2); #Eosinphils 0.2 thou/uL (0.0-0.7); #Lymphocytes 2.6 thou/uL (1.20-3.40); #Monocytes 0.5 thou/uL (0.11-0.59); #Neutrophils 2.7 thou/uL (1.40-6.50); %Eosinophils 2.6 % (0.0-10.0); %Lymphocytes 43.7 % (21.0-51.0); %Monocytes 7.8 % (0.0-10.0); %Neutrophils 44.9 % (42.0-75.0); Hemoglobin 14.7 g/dL (12.0-16.0); Mean Corpuscular Hemoglobin 28.4 pg (27.0-31.0); Mean Corpuscular Volume 83.7 fL (78.0-98.0); Mean Platelet Volume 7.1 fL (7.4-10.4); Platelet Count 259 thou/uL (130-400); RBC Distribution Width 13.5 % (11.5-14.5); Red Blood Cell (RBC) Count 5.18 mill/uL (4.20-5.40)
[2018-12-24 04:18] LABS: Anion Gap 15 mmol/L (10-20); BUN (Urea Nitrogen) 10 mg/dL (7.0-18.7); Calc. Creatinine Clearance 181 mL/min (70-130); Calcium 9.3 mg/dL (7.8-10.44); Carbon Dioxide 20 mmol/L (22-29); Cardiac Risk 5.7 (Less than 4.5); Chloride 103 mmol/L (98-107); Cholesterol 228 mg/dl (< 200 Desired); Estimated GFR-MDRD Greater than 90; Glucose 265 mg/dL (70-105); HDL Cholesterol 40 mg/dL (>60 Neg Risk); LDL Cholesterol, Calculated 126 mg/dL; Potassium 3.7 mmol/L (3.5-5.1); Sodium 134 mmol/L (136-145); Triglycerides 310 mg/dL (Less than 150)
--- NOTE | 2018-12-24 06:37 | PDOC.FM ---
- Subjective Subjective: NAEO. Patient resting in bed. Slurred speech resolved. Patient feels back to baseline. No numbness or weakness. patient states that she has been walking around the room and down the halls with no issues. Tolerating PO. - Objective MAR Reviewed: Yes Vital Signs & Weight: Vital Signs (12 hours) Temp Pulse Resp BP Pulse Ox 12/24/18 04:00 97.7 F 82 16 129/72 95 12/24/18 00:00 97.8 F 82 16 130/76 94 L 12/23/18 19:10 97.9 F 93 16 131/78 97 Weight Weight 94.256 kg I&O: 12/22/18 12/23/18 12/24/18 06:59 06:59 06:59 Intake Total 240 Balance 240 Result Diagrams: 12/24/18 03:11 12/24/18 03:11 Phys Exam - Physical Examination Constitutional: NAD HEENT: PERRLA, moist MMs, sclera anicteric Neck: supple, full ROM Respiratory: no wheezing, no rales, no rhonchi, clear to auscultation bilateral Cardiovascular: RRR, no significant murmur, no rub Gastrointestinal: soft, non-tender, no distention, positive bowel sounds Neurological: moves all 4 limbs Psychiatric: normal affect, A&O x 3 Skin: no rash, normal turgor, cap refill <2 seconds Dx/Plan (1) Depression Code(s): F32.9 - MAJOR DEPRESSIVE DISORDER, SINGLE EPISODE, UNSPECIFIED Status : Acute (2) Diabetes mellitus type 2 in nonobese Code(s): E11.9 - TYPE 2 DIABETES MELLITUS WITHOUT COMPLICATIONS Status: Acute (3) History of breast cancer Code(s): Z85.3 - PERSONAL HISTORY OF MALIGNANT NEOPLASM OF BREAST Status: Acute (4) TIA (transient ischemic attack) Code(s): G45.9 - TRANSIENT CEREBRAL ISCHEMIC ATTACK, UNSPECIFIED Status: Acute (5) CVA (cerebral vascular accident) Code(s): I63.9 - CEREBRAL INFARCTION, UNSPECIFIED Status: Acute - Plan Plan: TIA vs CVA Patient presenting w/ aphasia and headache since noon 12/23. Patient not candidate for TPA due to being on eliquis. PMH of breast cancer. CT brain neg. CTA: congenital small vasculature. - Echo pending - A1C 10.4, FLP: total 228, TG 310, LDL 126, HDL 40, ESRnml, CRP 2.44 - PT/OT and speech consulted - Monitor VS - Pt ASCVD risk: 3.3%: Will start mod - intensity statin DMII - aware, on metformin, will hold for now - A1C 10.4 - Pt on insulin, SS, ACHS Depression - aware, restart home med Hx of breast cancer - last chemo/radiation November 2017 Code: FULL VTE ppx: eliquis Diet: CC Addendum - Attending - Attending Attestation Date/Time: 12/24/18 1000 I personally evaluated the patient and discussed the management with Dr. Dailey I agree with the History, Examination, Assessment and Plan documented above with any addition or exceptions noted below. Slurred/slowed speech- improved to 80% normal. 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 Will consult neuro as patient on eliquis and age 38. ECHO pending. Uncontrolled [id number] start insulin. Hyperlipidemia- start statin
[2018-12-24] MEDS: HumaLOG 300 UNITS/3 ML VIAL SC PRN ×3 (06:43→17:09)
[2018-12-24] MEDS ORDERED: PRE FILLED SC SCH (09:00)
[2018-12-24] MEDS ORDERED: Apixaban 5 MG TAB PO SCH (09:00)
[2018-12-24] MEDS ORDERED: INSULIN GLARGINE SC SCH (09:00)
[2018-12-24] MEDS ORDERED: Insulin Glargine 5 UNITS in Pre-Filled Syringe 1 EACH SC SCH (09:00)
[2018-12-24 15:44] VITALS: TEMP 97.6
[2018-12-24] MEDS ORDERED: metFORMIN 500 MG TAB PO SCH (17:00)
[2018-12-24] MEDS ORDERED: Atorvastatin Calcium 20 MG TAB PO SCH (21:00)
--- NOTE | 2018-12-24 22:07 | CON ---
DATE OF CONSULTATION: 12/24/2018 CHIEF COMPLAINT: Left-sided weakness. HISTORY OF PRESENT ILLNESS: The patient reports that she has had history of breast cancer and she has a port on the left side for chemo and she also had surgery with the lumpectomy on the right breast plus radiation. She was at work yesterday at around 12:00 noon when she developed a headache and difficulty with speech plus left face, arm, leg pain with weakness, and she came into the hospital with the symptoms of slurred speech and weakness. She reports that her symptoms improved by 2:00 a.m. in the morning today. The patient is feeling like she is close to normal, but she does complain of some pain. PREVIOUS MEDICAL HISTORY: Diabetes, breast cancer in 2017, status post chemoradiation. PAST SURGICAL HISTORY: MediPort placement, hernia repair, tubal , cholecystectomy, three sections, and right breast lumpectomy. FAMILY HISTORY: Grandfathers, both of them had cancer. She does not know which type. Mother is 55 and diabetic and had a coronary artery bypass graft. Father is 62 and healthy. SOCIAL HISTORY: The patient does not smoke, drink alcohol, or use any drugs. HOME MEDICATIONS: She takes metformin, sertraline, and Eliquis at home. ALLERGIES: NO KNOWN DRUG ALLERGIES. REVIEW OF SYSTEMS: PULMONARY: Negative for cough or shortness of breath. CARDIOVASCULAR: Negative for palpitations or chest pain. GI: Negative for any stomach problems. GENITOURINARY: Negative for bladder infection or urinary frequency. NEUROLOGIC: Positive for headache and left-sided weakness and numbness, which has resolved. HEMATOLOGIC: Negative for bleeding diathesis. PHYSICAL EXAMINATION: VITAL SIGNS: Blood pressure 136/65, temperature 97.9, pulse 86, respiratory rate 17, and O2 sats 98%. GENERAL APPEARANCE: A well-built, well-nourished lady, who has a slow speech. CHEST: Clear vesicular breathing. CARDIOVASCULAR: S1 and S2 heard. No murmurs. ABDOMEN: Soft and nontender. NEUROLOGIC: Higher intellectual functions, normal touch, normal orientation to time, place, and person. Cranial nerves 2 through 12, normal extraocular movements. Pupils are mm, reactive. Normal sensation of face bilaterally. Tongue midline. Normal hearing to finger rub bilaterally and normal elevation of palate. Motor exam: Bulk normal. Tone normal. Strength is 5/5 in upper and lower extremities in iliopsoas, hamstrings, quadriceps, ankle dorsiflexion, plantar flexion, deltoid, biceps, triceps, wrist extension, flexion, finger extension, flexion bilaterally. Deep tendon reflexes were 1+ throughout. Cerebellar, normal [id number], [id number]. Sensory examination, normal touch bilaterally in upper and lower extremities. LABORATORY DATA: White count 6, hemoglobin 14.7, hematocrit 43.3, and platelets 259. PT 12.6, INR 0.9, and PTT 27.6. Chemistry; sodium 134, potassium 3.7, chloride 103, bicarb 20, BUN 10, creatinine 0.64, glucose 265. Triglycerides 310, cholesterol 228, LDL 126, and HDL 40. DIAGNOSTIC DATA: An MRI of the brain was negative for any acute infarct and CTs of the [place] of [place] and angiogram of the neck showed no stenosis of any intracranial or extracranial vasculature; however, she has a diminutive [place] of [place] vessels. IMPRESSION: The patient is a 38-year-old lady with history of headache along with left-sided weakness and numbness, which resolved. Her MRI is negative for acute stroke. CT angio shows diminutive [place] vessels. I suspect this lady had a transient ischemic attack. She is currently pending her echocardiogram. Impression, diagnosis is most consistent with possible transient ischemic attack. Her most recent echocardiogram was in 2017 and that did not show any valvular heart disease. TREATMENT RECOMMENDATIONS: Please add small dose of aspirin to her treatment regimen along with statin, and we will follow up the patient tomorrow. If she remains stable, she can be discharged with a Neurology followup. Job ID: [id number]
[2018-12-25 09:32] VITALS: BP 137/89
--- NOTE | 2018-12-26 02:26 | DIS ---
DATE OF ADMISSION: 12/23/2018 DATE OF DISCHARGE: 12/24/2018 RESIDENT: Jannie Dailey MD ADMITTING ATTENDING: Jesus Vaca MD. DISCHARGE ATTENDING: Chante Manuel MD. CONSULTS: Neurology. PROCEDURES: None. PRIMARY DIAGNOSIS: Transient ischemic attack. SECONDARY DIAGNOSES: History of breast cancer; diabetes type 2, uncontrolled; depression. DISCHARGE MEDICATIONS: 1. Lipitor 20 mg oral at bedtime. 2. Lantus 5 units subcutaneous daily. 3. Sertraline 50 mg oral 3 times daily. 4. Metformin 1000 mg oral twice daily with meals. 5. Eliquis 5 mg oral twice daily. DISCONTINUED MEDICATIONS: None. HISTORY OF PRESENT ILLNESS/HOSPITAL COURSE: This is a 38-year-old female, who presented with a chief complaint of slurred speech and weakness for several hours. The patient has a past medical history of diabetes, on metformin and history of breast cancer, status post radiation and chemotherapy with the last treatment being in November 2017. The patient states that she was at work when she began having headache around noon and subsequently developed difficulty with her speech. The patient stated that she felt as if she was thinking faster than she was able to get her words out. The patient stated that she also has left upper chest and arm pain that has been there for about a year. She states this is likely due to her MediPort that was placed there. She is scheduled to get a MediPort out next and has been on Eliquis throughout this time because of the MediPort. The patient denied any chest pain, palpitations, vision changes, nausea, vomiting, diarrhea, dysuria, or numbness. The patient also endorsed weakness in her extremities, but denied any difficulty walking. She denied any difficulty swallowing during this time. The patient denied any fever or chills. 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 The patient was admitted to the stroke unit for observation. The patient remained vitally stable throughout her stay with improvement of her symptoms. Of note, the patient had glucose in the 400s on arrival to the ED. The patient was found to have elevated cholesterol of 228 and triglycerides of 310. A CT brain was negative. A CTA showed congenitally small vasculature. The patient had an A1c that was 10.4. The patient also had an elevated CRP. The patient had an echo performed that showed an ejection fraction greater than 50% and trace mitral and tricuspid regurgitation. Neurology was consulted. They recommended daily statin and aspirin. The aphasia is likely due to TIA, due to uncontrolled diabetes. The patient was started on insulin and metformin increased for control of diabetes. Lifestyle modification discussed with the patient including diet and exercise to help keep the diabetes under better control. The patient was educated on diabetes, administering insulin. The patient will continue on Eliquis throughout her stay in preparation for removal of MediPort next week. DISPOSITION: Stable. DISCHARGE INSTRUCTIONS: 1. Location: Home. 2. Activity: Ad suman. 3. Diet: Heart healthy, consistent carbohydrate. 4. Follow up with PCP, Dr. Thompson within one week. Job ID: [id number] [facility]PITALHilary
--- NOTE | 2019-01-05 15:24 | EKG ---
Test Reason : Blood Pressure : / mmHG Vent. Rate : 087 BPM Atrial Rate : 087 BPM P-R Int : 174 ms QRS Dur : 096 ms QT Int : 370 ms P-R-T Axes : 052 020 022 degrees QTc Int : 445 ms Normal sinus rhythm Normal ECG Confirmed by MARLENE AREVALO D.O. ([id number]), visual effects editor JENARO ABBOTT ([id number] on 01/05/2019 3:24:37 PM Referred By: Confirmed By:MARLENE AREVALO D.O.
== END 2018-12-24 17:30 | disposition home or self-care (01) ==
LOC: ERS 13:15 → 2SE 16:55
PROVIDERS: ADMIT Family Medicine; ATTEND Family Medicine
DX: G45.9 Transient cerebral ischemic attack, unspecified (principal); F32.9 Major depressive disorder, single episode, unspecified; Z79.01 Long term (current) use of anticoagulants; Z79.4 Long term (current) use of insulin; Z79.899 Other long term (current) drug therapy; Z85.3 Personal history of malignant neoplasm of breast
CPT/HCPCS: 36415; 36416; 70450; 70496; 70498; 70551; 80048; 80053; 80061; 83036; 84484; 85025; 85610; 85652; 85730; 86140; 93005; 93306; 96360; G0378; J1825; Q9966

== ENCOUNTER 2019-03-20 07:59 | Outpatient (CLI) | payer OTHER ==
--- NOTE | 2019-03-20 12:07 | NM ---
NUCLEAR MEDICINE BONE SCAN WHOLE BODY: (Skeletal scintigraphy) DATE: 03/20/2019 HISTORY: 38-year-old female with breast cancer and elevated alkaline phosphatase. TECHNIQUE: IV injection of technetium 99m-MDP: 31.1 mCi 3 hour delayed whole body skeletal scintigraphy in anterior and posterior views. FINDINGS: There are no foci of asymmetrically increased uptake that are particularly suspicious for bone metast ases. IMPRESSION: No compelling evidence of skeletal metastasis.
== END 2019-03-20 08:00 | disposition home or self-care (01) ==
LOC: NM 07:59
PROVIDERS: ATTEND Internal Medicine Medical Oncology
DX: C50.411 Malignant neoplasm of upper-outer quadrant of right female breast (principal); R74.8 Abnormal levels of other serum enzymes
CPT/HCPCS: 78306; A9503

== ENCOUNTER 2020-07-15 18:30 | Inpatient (IN) | payer BC ==
[~2020-07-15 18:30] MED LIST: Iopamidol-370 76% 500 ML 1 ML ONE
[2020-07-15 19:10] LABS: #Basophils 0.1 thou/uL (0.0-0.2); #Lymphocytes 0.7 thou/uL (1.20-3.40); #Monocytes 0.7 thou/uL (0.11-0.59); #Neutrophils 5.2 thou/uL (1.40-6.50); %Basophils 1.4 % (0.0-1.0); %Eosinophils 0.1 % (0.0-10.0); %Lymphocytes 9.8 % (21.0-51.0); %Monocytes 10.9 % (0.0-10.0); %Neutrophils 77.8 % (42.0-75.0); Mean Corpuscular HGB CONC 34.8 g/dL (32.0-36.0); Mean Corpuscular Hemoglobin 30.7 pg (27.0-31.0); Mean Corpuscular Volume 88.2 fL (78.0-98.0); Mean Platelet Volume 7.5 fL (7.4-10.4); Platelet Count 154 thou/uL (130-400); RBC Distribution Width 12.6 % (11.5-14.5); Red Blood Cell (RBC) Count 4.56 mill/uL (4.20-5.40); White Blood Cell (WBC) Count 6.7 thou/uL (4.8-10.8)
[2020-07-15] MEDS ORDERED: cefTRIAXone\\ROCEPHIN 1 GM VIAL ONE (19:11)
[2020-07-15] MEDS ORDERED: Dexamethasone 10 MG/ML VIAL ONE (19:11)
[2020-07-15] MEDS ORDERED: Ibuprofen 200 MG TAB ONE (19:11)
--- NOTE | 2020-07-15 19:17 | RAD ---
Portable frontal chest radiograph: 07/15/2020 COMPARISON: 04/27/2017 HISTORY: Body aches with dyspnea FINDINGS: Postoperative clips are seen in the right axillary region. Heart and mediastinal contours a ppear within normal limits. No pneumothorax or pleural fluid. No focal consolidation or alveolar edema. IMPRESSION: No acute findings.
[2020-07-15] MEDS ORDERED: Albuterol 200 PUFF (6.7GM INHALER) ONE (19:18)
[2020-07-15 19:37] LABS: ALT (SGPT) 25 U/L (8-55); AST (SGOT) 19 U/L (5-34); Albumin 3.3 g/dL (3.5-5.0); Alkaline Phosphatase 221 U/L (40-110); Anion Gap 17 mmol/L (10-20); BUN (Urea Nitrogen) 8 mg/dL (7.0-18.7); Bilirubin, Total 0.9 mg/dL (0.2-1.2); Calc. Creatinine Clearance 0 mL/min (70-130); Calcium 9.7 mg/dL (7.8-10.44); Carbon Dioxide 19 mmol/L (22-29); Chloride 97 mmol/L (98-107); Estimated GFR-MDRD 70; Globulin 4.1 g/dL (2.4-3.5); Glucose 550 mg/dL (70-105); Potassium 3.7 mmol/L (3.5-5.1); Protein, Total 7.4 g/dL (6.0-8.3); Sodium 129 mmol/L (136-145)
[2020-07-15 19:46] LABS: BHCG - Serum Negative (NEGATIVE); Pregs Control Background? CLEAR/WHITE (CLR/WHITE); Pregs Control Bar Appear? YES (CONTROL BAR)
[2020-07-15] MEDS ORDERED: Azithromycin 500 MG in Sodium Chloride 0.9% 250 ML 250 ML IVPB SCH (20:00)
[2020-07-15 20:32] LABS: Bilirubin Negative (Negative); Blood, Urine 2+ (Negative); Clarity Clear (Clear); Glucose, Urine (Dipstick) Greater than 1000 mg/dL (Negative); Ketone, Urine 20 mg/dL (Negative); Leukocyte 500 Leu/uL (Negative); Nitrite Negative (Negative); Protein, Urine (Dipstick) 30 mg/dL (Neg-Trace); Specific Gravity, Urine 1.038 (1.002-1.036); Squamous Epithelial 0-3 HPF (0-3); Urobilinogen Normal mg/dL (Less than 2); WBC/HPF Greater than 50 HPF (0-3); pH, Urine 6.5 (5.0-9.0)
[2020-07-15 20:39] LABS: Bacteria/HPF 2+ HPF (None Seen); Yeast-Budding 1+ HPF (None Seen)
[2020-07-15 20:53] LABS: Bicarbonate (HCO3v) 19.9 mmol/L (22.0-28.0); CO2 Tension (PvCO2) 35.4 mmHg (40.0-50.0); Calcium, Ionized 1.12 mmol/L (1.15-1.33); Chloride 107 mmol/L (98-107); Hemoglobin - Calc 12.2 g/dL (12.0-16.0); Potassium 3.6 mmol/L (3.5-5.1); Sodium 135 mmol/L (138-145); T. Carbon Dioxide 20.9 mmol/L (22.0-28.0)
[2020-07-15] MEDS ORDERED: Insulin Regular 300 UNITS/3 ML VIAL ONE (21:57)
--- NOTE | 2020-07-15 22:08 | PDOC.FPRHP ---
- History of Present Illness Chief Complaint: fever, cough, SOB History of Present Illness: This is a 39yo F here today with multiple complaints including fever, chills, cough, SOB, and body aches since 07/11. She went to [facility] earlier today and had neg COVID and flu swab. She reports fever up to 102F at home. She reports symptoms have improved mildly with tylenol at the clinic but became worse this morning. Reports chest pain located in the middle of chest, worse with inspiration. Reports has not been taking her metformin for her DM since her symptoms started. Reports increased frequency of urination. Reports burning with urination that started Wednesday. Patient states that she is supposed to take metformin at home, does not take insulin, but has not taken her metformin since wednesday due to feeling bad. Notes that her sugars at home are usually upper 200s-300s, and she has not been to see her PCP in a while. ED Course: 6units Novolin, 2L NS, 600mg ibuprofen, 500mg azithro IV, 10mg decadron, albuterol, rocephin - Allergies/Adverse Reactions Allergies Allergy/AdvReac Type Severity Reaction Status Date / Time No Known Allergies Allergy Verified 12/04/19 05:47 - Home Medications Medication Instructions Recorded Confirmed Type Sertraline HCl 50 mg PO TID 08/02/15 12/23/18 History metFORMIN [Glucophage] 1,000 mg PO BID-WM 04/19/17 12/23/18 History Apixaban [Eliquis] 5 mg PO BID 12/23/18 12/23/18 History Atorvastatin Calcium [Lipitor] 20 mg PO HS #30 tab 12/24/18 Rx Insulin Glargine,Hum.Rec.Anlog 5 unit SC DAILY #3 pen 12/24/18 Rx [Lantus Solostar] - History PMHx: breast cancer R breast 2017 s/p radiation (01/28), chemo (10/31), DM2 PSHx: Lumpectomy on R, removal of lymph notes, cholecystectomy, hernia repair, tubal ligation, mediporth removal 06/30 FHx: non contributory Social: denies alcohol, drug, or tobacco use - Review of Systems General: reports: fever/chills, weight/appetite/sleep changes, fatigue Eyes: denies: vision changes ENT: reports: nasal congestion Respiratory: reports: cough, congestion, shortness of breath Cardiovascular: reports: chest pain (worse with inspiration). denies: palpitation, edema Gastrointestinal: reports: nausea. denies: vomiting, diarrhea, constipation, abdominal pain Genitourinary: reports: dysuria, polyuria. denies: incontinence, discharge Skin: denies: rashes, lesions Musculoskeletal: denies: pain, tenderness, stiffness, swelling Neurological: reports: weakness - Vital signs BP: 101/69, Pulse: 110, Resp: 18, O2 sat: 94 on (Room Air), Wt : 93kg - Physical Exam Constitutional: NAD, awake, alert and oriented, well developed HEENT: normocephalic and atraumatic, EOMI, grossly normal vision, grossly normal hearing, other (slightly dry MM) Neck: supple, FROM, trachea midline Chest: no lesions, other (mild chest wall tenderness along sternum) Heart: RRR, normal S1/S2, no murmurs/rubs/gallops, pulses present, no edema Lungs: CTAB, no respiratory distress, good air movement, no rales/rhonchi, no wheezing, no retractions Abdomen: soft, bowel sounds present, other (epigastric and suprapubic TTP) Musculoskeletal: normal structure, normal tone, ROM grossly normal, other (+CVA tenderness L>R) Neurological: no focal deficit Skin: no rash/lesions, good turgor, capillary refill <2 seconds Heme/Lymphatic: no unusual bruising or bleeding Psychiatric: normal mood and affect FMR H&P: Results - Labs Result Diagrams: 07/15/20 18:58 07/15/20 18:58 Lab results: WBC 6.7 thou/uL (4.8-10.8) 07/15/20 18:58 Hgb 14.0 g/dL (12.0-16.0) 07/15/20 18:58 Hct 40.2 % (36.0-47.0) 07/15/20 18:58 MCV 88.2 fL (78.0-98.0) 07/15/20 18:58 Plt Count 154 thou/uL (130-400) 07/15/20 18:58 Neutrophils % 77.8 % (42.0-75.0) H 07/15/20 18:58 VBG pCO2 35.4 mmHg (40.0-50.0) L 07/15/20 20:49 VBG pO2 93.6 mmHg (35.0-45.0) H 07/15/20 20:49 Sodium 129 mmol/L (136-145) L 07/15/20 18:58 Potassium 3.7 mmol/L (3.5-5.1) 07/15/20 18:58 Chloride 97 mmol/L (98-107) L 07/15/20 18:58 Carbon Dioxide 19 mmol/L (22-29) L 07/15/20 18:58 BUN 8 mg/dL (7.0-18.7) 07/15/20 18:58 Creatinine 0.90 mg/dL (0.6-1.1) 07/15/20 18:58 Glucose 550 mg/dL (70-105) H 07/15/20 18:58 Lactic Acid 1.4 mmol/L (0.5-2.2) 07/15/20 18:58 Calcium 9.7 mg/dL (7.8-10.44) 07/15/20 18:58 Total Bilirubin 0.9 mg/dL (0.2-1.2) 07/15/20 18:58 AST 19 U/L (5-34) 07/15/20 18:58 ALT 25 U/L (8-55) 07/15/20 18:58 Alkaline Phosphatase 221 U/L (40-110) H 07/15/20 18:58 Serum Total Protein 7.4 g/dL (6.0-8.3) 07/15/20 18:58 Albumin 3.3 g/dL (3.5-5.0) L 07/15/20 18:58 Urine Ketones 20 mg/dL (Negative) A 07/15/20 20:00 Urine Blood 2+ (Negative) A 07/15/20 20:00 Urine Nitrite Negative (Negative) 07/15/20 20:00 Ur Leukocyte Esterase 500 Rui/uL (Negative) A 07/15/20 20:00 Urine RBC 11-20 HPF (0-3) A 07/15/20 20:00 Urine WBC Greater than 50 HPF (0-3) A 07/15/20 20:00 Ur Squamous Epith Cells 0-3 HPF (0-3) 07/15/20 20:00 Urine Bacteria 2+ HPF (None Seen) A 07/15/20 20:00 FMR H&P: A/P - Plan Sepsis 2/2 Pyelonephritis with possible URI Tachycardic, Fever 100.7 UA showed bacteria, leuks, +CVA tenderness Elevated DD, CTA Chest showed no PE, but slight stranding adjacent to the superior pole left kidney - UCx and BCx pending - will continue rocephin - starting mIVFs @ 125 - RVP ordered - covid re-swabbed and pending - continue to monitor vitals Hyperglycemia, Type II DM Glucose 550 on arrival pH 7.357, CO2 35, O2 94, biacarb 20 Elevated BHB, but no AG a1c 11.7 - will get q4hr glucose checks - aggressive sliding scale - will likely need to start insulin outpatient - DM education Atypical Chest Pain, likely 2/2 MSK + Chest wall tenderness EKG: Tachycardic, no ST changes Trop negative Lipase negative Hx Anxiety/Bipolar Disorder - restart home meds Hx Breast Cancer s/p right lumpectomy - per patient s/p chemo and radiation therapy - remission since 2017 Dispo: inpatient medicine PCP: [facility] Code status: Full I have discussed this case with Dr. Christensen who is in agreement. FMR H&P: Upper Level - Plan Date/Time: 07/15/202207 I, Jannie Dailey MD, have evaluated this patient and agree with findings/plan as outlined by trestle mainternance laborer resident. Pertinent changes/additions are listed here. This is a 39yo F with PMH significant for breast cancer (in remission since 2017), DM2 who presents to the ER with multiple complaints of fever, chills, body aches since last . She went to the [facility] today and tested negative for COVID and flu. She states that they send off another COVID swab that she has not heard back about. She reports non productive cough. Tmax 102F at home. Endorses frontal headache as well. She reports pain in her chest with a deep breath. Does not radiate. Not worse with exertion. She denied SOB. Reports that she started feeling worse which is why she came back to the ER. She denies any sick contacts. Works at a school in the [employer] In the ER, she was given azithro, rocephin, decadron, 2L NS, albuterol, and ibuprofen. She was also found to have an elevated glucose and was given 6u regular insulin. VS initial were tachy to 132, Tmax of 100.7F. She was normotensive. UA showed bacteria, leuks. Ddimer elevated, no PE on CTA. CTA did show slight stranding adjacent to the superior pole left kidney. pH 7.357, CO2 35, O2 94, biacrb 20. PE remarkable for CVA tenderness worse on L, tachycardia, mildly dry MM, epigastric pain. Will admit to medical, inpatient. Sepsis 2/2 pyelonephritis with possible URI. Will continue rocephin. Procal pending. RVP pending. COVID re-swabbed and pending. Will give IVF. F/u blood and urine cx. DM2 with hyperglycemia - glucose of 550 on arrival. Will get q4hr glucose and cover with aggressive sliding scale. A1c 11.7. Patient likely needs increased dosage of insulin outpatient. DM education needed. No gap although BHB is elevated. Continue other medications for chronic conditions. Dispo: admit to med, inpt Diet: CC PCP: BORIS Montes De [facility] Case discussed with Dr. Christensen. See trestle mainternance laborer note for full history. Addendum - Attending - Attending Attestation Date/Time: 07/15/20 1799 I personally evaluated the patient and discussed the management with Dr. Acuña/Asim I agree with the History, Examination, Assessment and Plan documented above with any addition or exceptions noted below. 39 yo HF PMH IDDM and breast CA in remission. Presents with 5 day hx fever/chill, malaise, CALIX, intermittent cough, dysuria, and flank pain. No known covid sx. Recently tested at outside facility for covid and flu was negative for both. Exam remarkable for suprapubic and CVA tenderness. lungs clear. labs concerning for UTI. Admit to inpatient medical for sepsis 2/2 pyelo vs influenza. repeat covid and RVP. continue rocephen. screen for GC/CT. ucx and bcx collected. continue IV fluids. s/p 2L bolus. DM management w/ repeat A1c and aggressive SSI. Resume lantus. Needs outpatient PCP.
--- NOTE | 2020-07-15 22:09 | CT ---
CT ANGIOGRAM THORAX WITH IV CONTRAST AND 3D RECONSTRUCTIONS: History: Tachycardia, short of breath. History of DVT. Comparison: 09-11-18 FINDINGS: No filling defects are seen in the pulmonary arteries to suggest a pulmonary embolus. The thoracic aorta is normal in caliber without evidence of an aortic dissection. There is suggested narrowing of the left subclavian vein with multiple collateral vessels about the left chest. The heart is mildly enlarged. Mediastinal structures otherwise have a normal appearance without evide nce of lymphadenopathy. There are pleural linear and suggested vertebral nodular densities in the anterolateral aspect of the right upper lobe which is at the level of the right breast, stable finding from prior study, and may be related to radiation therapy changes. The left lung is clear. A small peripheral bleb is seen in the right lower lobe. There is mild skin thickening and greater increased density in the right breast compared to the left with stable irregular low density area also seen in the right breast. Findings could be related to sc arring as well as post radiation changes of the right breast. These findings were seen on the study i n 2017. Post cholecystectomy changes are partially imaged. There is question of slight stranding adjacent to the left kidney. There is slight heterogeneity of a portion of the visualized left kidney. This incompletely imaged or evaluated on this examination. 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 No significant interval change compared to prior exam. IMPRESSION: 1. No CT evidence of pulmonary embolus. 2. Post radiation therapy changes involving the right breast and right upper lobe. 3. Suggested narrowing of the left subclavian vein with multiple collateral vessels about the le ft chest. 4. Question slight stranding adjacent the superior pole left kidney with subtle area of diminish ed attenuation in the anterolateral aspect of the visualized left kidney. This is incompletely imaged or evaluated. Pylonephritis cannot be entirely excluded based on this examination. Correlation with urinalysis is recommended. If indicated, a follow up CT abdomen could be performed POS: SADIE
[2020-07-15 23:34] LABS: Hemoglobin A1c 11.7 % (4.0-6.0)
[2020-07-15] MEDS ORDERED: Ondansetron ODT 4 MG TAB PO PRN (23:36)
[2020-07-15] MEDS ORDERED: Dextrose 50% Abboject 50 ML SYRINGE SLOW IVP PRN (23:36)
[2020-07-15] MEDS ORDERED: Dextrose 5% in Water 1,000 ML IV PRN (23:36)
[2020-07-16] MEDS: Lactated Ringer's 1,000 ML IV SCH ×4 (01:42→21:14)
[2020-07-16 02:21] VITALS: BMI 35.2
[2020-07-16] MEDS: HumaLOG 300 UNITS/3 ML VIAL SC PRN ×4 (04:55→21:15)
[2020-07-16 05:47] LABS: Band 33 % (5-11); Hemoglobin 12.8 g/dL (12.0-16.0); Lymphocytes 19 % (21-51); MDiff Complete? YES; Mean Corpuscular HGB CONC 34.6 g/dL (32.0-36.0); Mean Corpuscular Hemoglobin 30.6 pg (27.0-31.0); Mean Corpuscular Volume 88.5 fL (78.0-98.0); Mean Platelet Volume 8.1 fL (7.4-10.4); Monocytes 4 % (0-10); Neutrophil 44 % (42-75); Platelet Count 142 thou/uL (130-400); Platelet Morphology Comment Appears Adequate; RBC Distribution Width 12.6 % (11.5-14.5); RBC Morphology Normal; Red Blood Cell (RBC) Count 4.18 mill/uL (4.20-5.40); White Blood Cell (WBC) Count 6.7 thou/uL (4.8-10.8)
[2020-07-16 05:59] LABS: Anion Gap 20 mmol/L (10-20); BUN (Urea Nitrogen) 12 mg/dL (7.0-18.7); Calc. Creatinine Clearance 138 mL/min (70-130); Carbon Dioxide 11 mmol/L (22-29); Chloride 104 mmol/L (98-107); Estimated GFR-MDRD 84; Glucose 436 mg/dL (70-105); Potassium 4.3 mmol/L (3.5-5.1); Sodium 131 mmol/L (136-145)
--- NOTE | 2020-07-16 06:47 | PDOC.FM ---
- Subjective Subjective: Patient reports that she is feeling much better. Her chest pain, abdominal pain, and fevers/chills have improved. - Objective MAR Reviewed: Yes Vital Signs & Weight: Vital Signs (12 hours) Temp Pulse Resp BP Pulse Ox 07/16/20 04:10 98.1 F 95 18 119/81 97 07/16/20 00:50 98.7 F 104 H 18 135/89 97 07/16/20 00:45 97 Weight Weight 87.453 kg I&O: 07/14/20 07/15/20 07/16/20 06:59 06:59 06:59 Intake Total 2350 Balance 2350 Result Diagrams: 07/16/20 05:16 07/16/20 17:55 Phys Exam - Physical Examination Constitutional: NAD HEENT: sclera anicteric Respiratory: no wheezing, no rales, no rhonchi, clear to auscultation bilateral Cardiovascular: RRR, no significant murmur, no rub Gastrointestinal: soft, no distention mild diffuse tenderness worse in suprapubic region Musculoskeletal: no edema Deviation from normal: Scar on L chest from port removal Dx/Plan - Plan Plan: Sepsis 2/2 Pyelonephritis with possible URI Tachycardic, Fever 100.7 UA showed bacteria, leuks, +CVA tenderness Elevated DD, CTA Chest showed no PE, but slight stranding adjacent to the superior pole left kidney - UCx and BCx pending - will continue rocephin - mIVFs @ 125 - RVP ordered - covid re-swabbed and pending - continue to monitor vitals Hyperglycemia, Type II DM Glucose 550 on arrival pH 7.357, CO2 35, O2 94, biacarb 20 Elevated BHB, AG of 16 on AM BMP a1c 11.7 - will get q4hr glucose checks - aggressive sliding scale - Repeat BMP-if Gap present/worsened, consider treatment with DKA protocol, if AG improved, give Lantus - DM education Atypical Chest Pain, likely 2/2 MSK, resolved + Chest wall tenderness EKG: Tachycardic, no ST changes Trop negative Lipase negative Hx Anxiety/Bipolar Disorder - restart home meds Hx Breast Cancer s/p right lumpectomy - per patient s/p chemo and radiation therapy - remission since 2016 Dispo: inpatient medicine PCP: [facility] Code status: Full Addendum - Attending - Attending Attestation Date/Time: 07/16/20 2064 I personally evaluated the patient and discussed the management with Dr. Collier I agree with the History, Examination, Assessment and Plan documented above with any addition or exceptions noted below - Patient feeling much better. No N/V. Back pain much improved. Afebrile VSS. A/P: 1) Sepsis secondary to pyelonephritis from E. coli - clinically improving; continue current abx pending sensitivities. 2) Type 2 DM, uncontrolled- started on insulin; continue to monitor closely and adjust insulin as needed.
[2020-07-16 08:40] LABS: Anion Gap 18 mmol/L (10-20); BUN (Urea Nitrogen) 12 mg/dL (7.0-18.7); Calc. Creatinine Clearance 138 mL/min (70-130); Calcium 9.1 mg/dL (7.8-10.44); Carbon Dioxide 13 mmol/L (22-29); Chloride 106 mmol/L (98-107); Estimated GFR-MDRD 84; Glucose 344 mg/dL (70-105); Sodium 133 mmol/L (136-145)
[2020-07-16] MEDS ORDERED: Insulin Glargine 17 UNITS in Pre-Filled Syringe 1 EACH SC SCH ×3 (09:00→10:30)
[2020-07-16 13:24] LABS: Lactic Acid 1.2 mmol/L (0.5-2.2)
[2020-07-16 13:31] LABS: Anion Gap 22 mmol/L (10-20); BUN (Urea Nitrogen) 14 mg/dL (7.0-18.7); Calc. Creatinine Clearance 127 mL/min (70-130); Calcium 9.3 mg/dL (7.8-10.44); Carbon Dioxide 11 mmol/L (22-29); Chloride 103 mmol/L (98-107); Estimated GFR-MDRD 76; Glucose 403 mg/dL (70-105); Potassium 4.2 mmol/L (3.5-5.1); Sodium 132 mmol/L (136-145)
[2020-07-16 18:15] LABS: SARS-CoV-2 MS2 Positive; SARS-CoV-2 N Gene Negative; SARS-CoV-2 S Gene Negative; SARS-CoV-2 by NAA Not Detected (NotDetected); SARS-CoV-2 orf1ab Negative
[2020-07-16 18:17] LABS: Anion Gap 19 mmol/L (10-20); BUN (Urea Nitrogen) 14 mg/dL (7.0-18.7); Calc. Creatinine Clearance 135 mL/min (70-130); Carbon Dioxide 12 mmol/L (22-29); Chloride 106 mmol/L (98-107); Estimated GFR-MDRD 82; Glucose 352 mg/dL (70-105); Potassium 4.3 mmol/L (3.5-5.1); Sodium 133 mmol/L (136-145)
[2020-07-16] MEDS ORDERED: cefTRIAXone\\ROCEPHIN 2 GM in Sodium Chloride 0.9% 100 ML IVPB SCH (19:00)
[2020-07-16] MEDS ORDERED: cefTRIAXone\\ROCEPHIN 1 GM in Sodium Chloride 0.9% 100 ML IVPB SCH (19:00)
[2020-07-17] MEDS: Lactated Ringer's 1,000 ML IV SCH ×3 (03:58→18:11)
[2020-07-17] MEDS: HumaLOG 300 UNITS/3 ML VIAL SC PRN ×4 (04:51→21:19)
[2020-07-17] MEDS: Acetaminophen 325 MG TAB PO PRN ×4 (04:56→23:29)
--- NOTE | 2020-07-17 06:52 | PDOC.FM ---
- Subjective Subjective: Patient reports increased abdominal pain this AM with nausea that resolved with Zofran. Otherwise feeling well. - Objective Vital Signs & Weight: Vital Signs (12 hours) Temp Pulse Resp BP Pulse Ox 07/17/20 04:00 98.4 F 85 20 137/92 H 97 07/16/20 20:14 99.1 F 88 20 140/69 97 07/16/20 20:00 97 Weight Weight 87.453 kg I&O: 07/15/20 07/16/20 07/17/20 06:59 06:59 06:59 Intake Total 2350 2280 Balance 2350 2280 Result Diagrams: 07/17/20 06:54 07/17/20 06:54 Phys Exam - Physical Examination Constitutional: NAD Respiratory: no wheezing, no rales, no rhonchi, clear to auscultation bilateral Cardiovascular: RRR, no significant murmur, no rub Gastrointestinal: soft, no distention, positive bowel sounds Epigastric tenderness Skin: no rash, normal turgor Dx/Plan - Plan Plan: Sepsis 2/2 Pyelonephritis with possible URI Tachycardic, Fever 100.7 UA showed bacteria, leuks, +CVA tenderness Elevated DD, CTA Chest showed no PE, but slight stranding adjacent to the superior pole left kidney - UCx grows E. coli, BCx grew 1/2 E. coli - will continue rocephin - mIVFs @ 125 - RVP ordered - covid negative - continue to monitor vitals Hyperglycemia, Type II DM Glucose 550 on arrival pH 7.357, CO2 35, O2 94, biacarb 20 Elevated BHB, AG of 16 on AM BMP a1c 11.7 - will get q4hr glucose checks - aggressive sliding scale - Lantus @ 35 units - DM education Atypical Chest Pain, likely 2/2 MSK, resolved + Chest wall tenderness EKG: Tachycardic, no ST changes Trop negative Lipase negative Hx Anxiety/Bipolar Disorder - restart home meds Hx Breast Cancer s/p right lumpectomy - per patient s/p chemo and radiation therapy - remission since 2017 Dyspepsia - abdominal pain appears to be epigastric, continue to monitor - Consider lipase if abdominal pain persists - start pepcid 20 mg BID Dispo: inpatient medicine PCP: [facility] Code status: Full Addendum - Attending - Attending Attestation Date/Time: 07/17/201844 I personally evaluated the patient and discussed the management with Dr. Collier I agree with the History, Examination, Assessment and Plan documented above with any addition or exceptions noted below - Patient reports some left sided back pain that awaoke her from sleep and radiates to her groin. Afebrile VSS. A/P: 1) Sepsis secondary to E. coli pyelonephritis - patient now reports h/o kidney stones in past; will obtain CT stone protocol to make sure there is not an obstructing stone. Continue IV abx for now. Sensitivities from blood culture pending. 2) DM- continue to monitor and adjust insulin.
[2020-07-17 07:09] LABS: Hemoglobin 12.4 g/dL (12.0-16.0); Mean Corpuscular HGB CONC 36.2 g/dL (32.0-36.0); Mean Corpuscular Volume 88.4 fL (78.0-98.0); Mean Platelet Volume 7.6 fL (7.4-10.4); Platelet Count 169 thou/uL (130-400); RBC Distribution Width 12.8 % (11.5-14.5); Red Blood Cell (RBC) Count 3.89 mill/uL (4.20-5.40); White Blood Cell (WBC) Count 9.8 thou/uL (4.8-10.8)
[2020-07-17 07:23] LABS: Anion Gap 15 mmol/L (10-20); BUN (Urea Nitrogen) 14 mg/dL (7.0-18.7); Calc. Creatinine Clearance 144 mL/min (70-130); Calcium 8.9 mg/dL (7.8-10.44); Carbon Dioxide 16 mmol/L (22-29); Chloride 106 mmol/L (98-107); Estimated GFR-MDRD 88; Glucose 314 mg/dL (70-105); Potassium 3.8 mmol/L (3.5-5.1); Sodium 133 mmol/L (136-145)
[2020-07-17 08:41] LABS: Band 16 % (5-11); Lymphocytes 20 % (21-51); MDiff Complete? YES; Monocytes 12 % (0-10); Neutrophil 51 % (42-75); RBC Morphology Normal; Reactive Lymphocytes 1 % (0-10)
[2020-07-17] MEDS ORDERED: Insulin Glargine 17 UNITS in Pre-Filled Syringe 1 EACH SC SCH (09:00)
[2020-07-17] MEDS: Insulin Glargine 35 UNITS in Pre-Filled Syringe 1 EACH SC SCH (10:08)
[2020-07-17] MEDS: Famotidine 20 MG TAB PO SCH ×2 (10:08→21:14)
--- NOTE | 2020-07-17 13:19 | CT ---
CT of abdomen and pelvis: 07/17/2020 COMPARISON: None HISTORY: Kidney infection, kidney stones TECHNIQUE: Axial CT imaging at 5 mm intervals from lung bases through pubic symphysis without contras t. Coronal reformatted imaging obtained. FINDINGS: Lack of contrast media limits assessment of the viscera, bowel, vascular structures, and fo r lymphadenopathy. The visualized lung bases are unremarkable. Cholecystectomy clips are present. No free intraperitonea l air. The liver, spleen, pancreas, and adrenal glands appear grossly unremarkable. The left kidney appears heterogeneous and mildly enlarged when compared to the right. There is mild l eft-sided perinephric stranding. There is no left-sided hydronephrosis or evidence of obstructive uropathy on the left. There is a punctate nonobstructing stone in the lower pole and in the upper van e of the left kidney. 2-3 tiny nonobstructing stones are noted in the upper/mid pole of the right kidney. There is a small hyperdense focus associated with the inferior aspect of the right kidney on axial image 46 measuring 5 mm, too small to characterize. No evidence for an obstructing renal stone is appreciated on this exam. No evidence for bowel inflammatory change or bowel obstruction. The appendix appears unremarkable. The osseous structures of the abdomen/pelvis demonstrate no acute findings. IMPRESSION: Mild nephromegaly and perinephric stranding on the left suspicious for left-sided pyelone phritis. Punctate nonobstructing bilateral renal calculi are present. There is no evidence for an obstructing stone on either side.
[2020-07-17] MEDS ORDERED: cefTRIAXone\\ROCEPHIN 2 GM in Sodium Chloride 0.9% 100 ML IVPB SCH (18:00)
[2020-07-17] MEDS ORDERED: Senokot S 8.6-50 MG TAB PO SCH ×2 (22:20→22:45)
[2020-07-18 05:57] LABS: #Basophils 0.1 thou/uL (0.0-0.2); #Lymphocytes 1.7 thou/uL (1.20-3.40); #Monocytes 0.9 thou/uL (0.11-0.59); #Neutrophils 4.1 thou/uL (1.40-6.50); %Basophils 1.9 % (0.0-1.0); %Eosinophils 0.6 % (0.0-10.0); %Lymphocytes 24.7 % (21.0-51.0); %Neutrophils 59.8 % (42.0-75.0); Hemoglobin 13.1 g/dL (12.0-16.0); Mean Corpuscular HGB CONC 33.9 g/dL (32.0-36.0); Mean Corpuscular Hemoglobin 30.2 pg (27.0-31.0); Mean Platelet Volume 7.4 fL (7.4-10.4); Platelet Count 224 thou/uL (130-400); Red Blood Cell (RBC) Count 4.34 mill/uL (4.20-5.40); White Blood Cell (WBC) Count 6.9 thou/uL (4.8-10.8)
[2020-07-18] MEDS: Lactated Ringer's 1,000 ML IV SCH ×2 (06:23)
[2020-07-18] MEDS: Acetaminophen 325 MG TAB PO PRN (06:23)
[2020-07-18 06:24] LABS: Anion Gap 12 mmol/L (10-20); BUN (Urea Nitrogen) 10 mg/dL (7.0-18.7); Calc. Creatinine Clearance 159 mL/min (70-130); Carbon Dioxide 25 mmol/L (22-29); Chloride 105 mmol/L (98-107); Estimated GFR-MDRD Greater than 90; Glucose 270 mg/dL (70-105); Potassium 3.4 mmol/L (3.5-5.1); Sodium 139 mmol/L (136-145)
[2020-07-18] MEDS: HumaLOG 300 UNITS/3 ML VIAL SC PRN (06:25)
[2020-07-18] MEDS: Famotidine 20 MG TAB PO SCH (08:02)
[2020-07-18 08:05] VITALS: BP 130/89; TEMP 98.5
[2020-07-18] MEDS ORDERED: Polyethylene Glycol 3350 17 GM Packet PO PRN (08:16)
[2020-07-18] MEDS ORDERED: Docusate 100 MG CAP PO PRN (08:16)
[2020-07-18] MEDS ORDERED: Senokot 8.6 MG TAB PO PRN ×2 (08:16)
--- NOTE | 2020-07-18 08:52 | PDOC.DS.DS ---
Provider - Provider Date of Admission: 07/15/20 22:19 Date of Discharge: 07/18/20 Admitting Provider: Stephen Christensen Primary Care Physician: [facility] Course - Hospital Course Hospital Course: Patient is a 39 yo female who presented to the hospital with concern for UTI. She reported abdominal pain, intermittent cough, and dysuria. Her UA was concerning for UTI and blood glucose was found to be 550. SHe was tachycardiac and febrile to 100.7 which met sepsis criteria. Patient was started on Rocephin, COVID and RVP was negative. D dimer was 1.15, CTA for PE was negative but showed evidence of L sided pyelonephritis. Patient was afebrile and sx improved during hospital stay. Urine culture was positive for E. coli and 1/2 blood cultures was positive for E. coli. There was concern for obstructing stone given intermittent, crampy abdominal pain, however CT stone protocol was negative for obstructing stone-there were bilateral nonobstructing renal calculi. Patient was started on Lantus and increased to 35 units QAM. Blood glucose was brought down to mid 200s. Given held metformin and active infection, patient will be discharged on this regimen with home metformin to be further titrated outpatient. Patient was transitioned to PO cefdinir for outpatient treatment totaling 2 wks antibiotic treatment given sensitivities from cultures and pyelonephritis with bacteremia. Resuscitation Status: 07/15/20 23:36 Resuscitation Status Routine Co-Sign Provider: Resuscitation Status: FULL: Full Resuscitation - Labs Lab Results: 07/18/20 05:24 07/18/20 05:24 Abnormal Lab Results - Last 48 hrs 07/16/20 08:12: B-Hydroxybutyrate 3.27 H 07/16/20 12:30: Sodium 132 L, Carbon Dioxide 11 L, Anion Gap 22 H 07/16/20 17:55: Sodium 133 L, Carbon Dioxide 12 L 07/17/20 06:54: Sodium 133 L, Carbon Dioxide 16 L 07/17/20 06:54: RBC 3.89 L, Hct 34.4 L, MCH 32.0 H, MCHC 36.2 H, Band Neuts % (Manual) 16 H, Lymphocytes % (Manual) 20 L, Monocytes % (Manual) 12 H 07/18/20 05:24: Potassium 3.4 L 07/18/20 05:24: Monocytes % 13.0 H, Basophils % 1.9 H, Monocytes # 0.9 H Microbiology - Entire Visit 07/15/20 18:59 Venous blood - Left Hand Blood Culture - Preliminary Escherichia coli 07/15/20 18:59 Venous blood - Left Arm Blood Culture - Preliminary NO GROWTH AT 48 HOURS 07/15/20 20:00 Urine voided Urine Culture - Final Escherichia coli 07/15/20 23:06 Nasopharyngeal swab Respiratory Virus Panel (PCR) - Final - Physical Exam Vitals: Vital Signs (12 hours) Temp Pulse Resp BP BP Pulse Ox 07/18/20 08:00 98.5 F 88 16 130/89 97 07/18/20 04:00 97.9 F 69 20 137/79 97 07/18/20 00:00 99.1 F 94 20 129/77 97 Weight Weight 87.453 kg Physical Exam: The patient was seen and examined on the day of discharge. Minimal tenderness to deep palpation on L side of abdomen. Problem - Discharge Plan Assessment: 39 yo F admitted to hospital due to sepsis from pyelonephritis. Patient discharged in stable condition. Plan of Treatment: Plan to continue outpatient antibiotic therapy for 12 days as guided by sensitivities from cultures. Patient was also started on 35 units of Lantus and was instructed to keep a log of blood sugars for clinic. - Time spent with Patient (mins): 20 Plan - Discharge Medications Prescriptions: Cefdinir 300 mg PO Q12HR 12 Days #24 capsule metFORMIN [Glucophage] 500 mg PO BID-WM 30 Days #60 tab Insulin Glargine [Lantus Vial] 35 units SC QAM 30 Days #3 vial Home Medications: Medication Instructions Recorded Confirmed Type Sertraline HCl [Zoloft] 150 mg PO DAILY 07/16/20 07/16/20 History Acetaminophen [Tylenol Regular 650 mg PO Q4H PRN tab 07/17/20 Rx Strength] Cefdinir 300 mg PO Q12HR 12 Days #24 capsule 07/17/20 Rx Famotidine [Pepcid] 20 mg PO BID tab 07/17/20 Rx Insulin Glargine [Lantus Vial] 35 units SC QAM 30 Days #3 vial 07/17/20 Rx Docusate [Colace] 100 mg PO DAILYPRN PRN cap 07/18/20 Rx Polyethylene Glycol 3350 [Miralax] 17 gm PO DAILYPRN PRN pk 07/18/20 Rx Sennosides/Docusate Sodium 1 tab PO BID tab 07/18/20 Rx [Senokot S] metFORMIN [Glucophage] 500 mg PO BID-WM 30 Days #60 tab 07/18/20 Rx Allergies: No Known Allergies Allergy (Verified 07/16/20 02:26) - Discharge Instructions Discharge Instructions:: YOUR PRESCRIPTIONS WERE SENT TO: [facility] [address] , [address], [place] [address] Activity:: No Restrictions Nourishment:: Diabetic Diet Therapies:: Not Applicable Equipment/Supplies:: Not Applicable IV Therapy:: Not Applicable - Follow up Plan Referrals: [facility] [Primary Care Provider] - 7 Days (Please follow up with [facility] to watch blood sugars and symptoms of infection. Please check blood sugars fasting in the AM and before every meal and keep a log to bring to clinic.) Disposition: HOME Quality - Care Measures CORE MEASURES:: N/A Addendum - Attending - Attending Attestation Date/Time: 07/18/20 [id number] I personally evaluated the patient and discussed the management with Dr. Collier I agree with the History, Examination, Assessment and Plan documented above with any addition or exceptions noted below - Patient without complaintys. Afebrile VSS. A/P: 1) Sepsis secondary to E. coli pyelonephritis- resolving. Plan to d/c home today with abx x 2 weeks. 2) DM- improved; continue insulin and follow-up at [facility] for adjustment.
[2020-07-18] MEDS ORDERED: Senokot S 8.6-50 MG TAB PO SCH (09:00)
[2020-07-18] MEDS: Insulin Glargine 35 UNITS in Pre-Filled Syringe 1 EACH SC SCH (09:19)
--- NOTE | 2020-07-18 16:25 | PQF ---
CLINICAL DOCUMENTATION CLARIFICATION FORM: Dear Dr. Katarina Collier *r Date / Time: 07/18/201614 Please exercise your independent, professional judgment in responding to the clarification form. Clinical indicators are provided on the bottom of this form for your review. 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 Thank You. To be completed by CDI/Coding staff for physician review: CLINICAL INDICATORS - SIGNS / SYMPTOMS / LABS / RESULTS AND LOCATION IN EMR 07/15 Sodium 129 07/16 Sodium 131,133, 132, 133 07/17 Sodium 133 RISK FACTORS / RESULTS AND LOCATION IN EMR Pyelonephritis, sepsis (discharge summary/Nando) 07/18 TREATMENTS / RESULTS AND LOCATION IN EMR IV FLUIDS LR (07/16-07/18) SERIAL LABS (07/15-07/18 Thank you! Emily [facility] Signature: Emily Morin RN Phone #: [phone] Date: 07/18/201614 This is a permanent part of the Medical Record [facility]
[2020-07-18 23:27] LABS: Chlam.trachomatis by PCR,Urine Not Detected (NotDetected)
--- NOTE | 2020-07-20 17:20 | EKG ---
Test Reason : Blood Pressure : / mmHG Vent. Rate : 116 BPM Atrial Rate : 116 BPM P-R Int : 156 ms QRS Dur : 092 ms QT Int : 340 ms P-R-T Axes : 037 005 013 degrees QTc Int : 472 ms Sinus tachycardia Left atrial enlargement Cannot rule out Anterior infarct , age undetermined Abnormal ECG Confirmed by FRANCISCO GREGORY, DESTINY Van ([id number]), graphic editor THERESE NARANJO ([id number]) on 07/20/2020 5:20:18 PM Referred By: Confirmed By:DESTINY SINGH MD
== END 2020-07-18 10:55 | disposition home or self-care (01) | DRG 872 ==
LOC: ERS 18:30 → T4-B 22:19
PROVIDERS: ADMIT Family Medicine; ATTEND Family Medicine
DX: A41.51 Sepsis due to Escherichia coli [E. coli] (principal); N10 Acute pyelonephritis; E87.1 Hypo-osmolality and hyponatremia; Z20.828 Contact with and (suspected) exposure to other viral communicable diseases; E11.65 Type 2 diabetes mellitus with hyperglycemia; F41.9 Anxiety disorder, unspecified; F31.9 Bipolar disorder, unspecified; Z79.4 Long term (current) use of insulin; Z79.899 Other long term (current) drug therapy; Z79.51 Long term (current) use of inhaled steroids; Z85.3 Personal history of malignant neoplasm of breast
CPT/HCPCS: 36415; 36416; 71045; 71275; 74176; 80048; 80053; 81003; 81015; 82010; 82330; 82803; 83036; 83605; 83690; 84145; 84484; 84703; 85007; 85025; 85027; 85379; 87040; 87077; 87086; 87149; 87186; 87491; 87591; 87633; 87635; 93005; 96365; 96367; 96375; J0456; J0696; J1100; J1815; J3490; J7050; Q0162; Q9967; U0003

== ENCOUNTER 2020-12-17 14:27 | Outpatient (CLI) | payer BC | END 2020-12-17 14:28 | disposition home or self-care (01) | LOC: BICMAMMO 14:27 | PROVIDERS: ATTEND Internal Medicine Medical Oncology | DX: C50.411 Malignant neoplasm of upper-outer quadrant of right female breast (principal) | CPT/HCPCS: 77066; G0279 ==

== ENCOUNTER 2023-01-05 07:09 | Emergency (ER) | payer BC ==
[2023-01-05 07:55] LABS: BHCG - Serum Negative (NEGATIVE); Pregs Control Background? CLEAR/WHITE (CLR/WHITE); Pregs Control Bar Appear? YES (CONTROL BAR)
[2023-01-05] MEDS ORDERED: Ondansetron PF 4 MG/2 ML Vial ONE (07:56)
[2023-01-05] MEDS ORDERED: Morphine 4 MG/ML VIAL ONE (07:56)
[2023-01-05 08:15] LABS: Hemoglobin 15.6 g/dL (12.0-16.0); Mean Corpuscular HGB CONC 35.1 g/dL (32.0-36.0); Mean Corpuscular Hemoglobin 30.8 pg (27.0-31.0); Mean Corpuscular Volume 87.8 fl (78.0-98.0); Mean Platelet Volume 7.4 fL (7.4-10.4); Platelet Count 277 10x3/uL (130-400); Red Blood Cell (RBC) Count 5.07 mill/uL (4.20-5.40); White Blood Cell (WBC) Count 4.3 10x3/uL (4.8-10.8)
[2023-01-05 08:29] LABS: ALT (SGPT) 16 U/L (8-55); AST (SGOT) 12 U/L (5-34); Alkaline Phosphatase 136 U/L (40-110); Anion Gap 15 mmol/L (10-20); BUN (Urea Nitrogen) 7 mg/dL (7.0-18.7); Bilirubin, Total 0.4 mg/dL (0.2-1.2); Calc. Creatinine Clearance 0 mL/min (70-130); Calcium 9.5 mg/dL (7.8-10.44); Carbon Dioxide 22 mmol/L (22-29); Chloride 103 mmol/L (98-107); Estimated GFR 100; Globulin 3.3 g/dL (2.4-3.5); Glucose 287 mg/dL (70-105); Lipase 24 U/L (8-78); Potassium 4.1 mmol/L (3.5-5.1); Protein, Total 7.3 g/dL (6.0-8.3); Sodium 136 mmol/L (136-145)
[2023-01-05] MEDS ORDERED: Iopamidol-370 76% 500 ML MDV (1 ML CHARGE) ONE (08:32)
[2023-01-05 08:39] LABS: Band 2 % (5-11); Eosinophils 1 % (0-10); Lymphocytes 56 % (21-51); MDiff Complete? YES; Monocytes 5 % (0-10); Neutrophil 36 % (42-75); Platelet Morphology Comment Appears Adequate; RBC Morphology Normal
== END 2023-01-05 10:21 | disposition home or self-care (01) ==
LOC: ERS 07:09
DX: R07.89 Other chest pain (principal); E11.9 Type 2 diabetes mellitus without complications
CPT/HCPCS: 36415; 71045; 71275; 80053; 83690; 84484; 84703; 85025; 93005; 94760; 96374; 96375; J2270; J2405; Q9967

== ENCOUNTER 2023-10-26 07:09 | Emergency (ER) | payer BC ==
[2023-10-26 08:43] LABS: SARS-CoV-2 NAA Rapid Test Not Detected (NotDetected)
== END 2023-10-26 08:00 | disposition home or self-care (01) ==
LOC: ERS 07:09
DX: J10.1 Influenza due to other identified influenza virus with other respiratory manifestations (principal); E11.9 Type 2 diabetes mellitus without complications
CPT/HCPCS: 71045; 93005